=== PATIENT | female | born 1930 | race Caucasian/White ===

== ENCOUNTER 2019-08-03 11:02 | Inpatient (IN) | payer OTHER ==
--- NOTE | 2019-08-03 12:26 | PDOC ---
History of Present Illness <Dao Rincon - Last Filed: 08/03/19 17:16> <Osito Leung - Last Filed: 08/03/19 20:01> - General Chief Complaint: Wound Stated Complaint: WOUND/RT FOOT Time Seen by Provider: 08/03/19 12:11 Past History <Dao Rincon - Last Filed: 08/03/19 17:16> - Past Medical History Anemia: No Asthma: No Cancer: No Cardiac Disorders: No CVA: No COPD: No CHF: No Dementia: No Diabetes: No GI Disorders: No Disorders: No HTN: No Hypercholesterolemia: No Liver Disease: No Thyroid Disease: No - Surgical History Orthopedic Surgery: Yes (right shoulder right hip) - Psycho Social/Smoking Cessation Hx Smoking History: Never smoked Have you smoked in the past 12 months: No If you are a former smoker, when did you quit?: over 50 years <Osito Leung - Last Filed: 08/03/19 20:01> - Past Medical History Allergies/Adverse Reactions: Allergies Allergy/AdvReac Type Severity Reaction Status Date / Time No Known Allergies Allergy Verified 08/03/19 10:15 Home Medications: Ambulatory Orders Acetaminophen 650 mg PO Q8H 08/03/19 Amino Acids/Protein Hydrolys [Pro-Stat Max Liquid] 30 ml PO BID 08/03/19 Docusate Sodium [Colace] 200 mg PO HS 08/03/19 Furosemide [Lasix -] 20 mg PO DAILY 08/03/19 Mirtazapine 7.5 mg PO ASDIR 08/03/19 Multivitamin [Multiple Vitamins] 1 each PO DAILY 08/03/19 Neomycin/Bacitracin/Polymyxinb [Triple Antibiotic Ointment] 1 each TP WEEKLY Oxycodone HCl 5 mg PO Q4H PRN 08/03/19 Polyethylene Glycol 3350 17 gm PO DAILY PRN 08/03/19 Sennosides [Senna] 17.2 mg PO HS 08/03/19 Silver Sulfadiazine [Silvadene] 1 applic TP BID 08/03/19 *Physical Exam - Vital Signs Last Vital Signs Temp Pulse Resp BP Pulse Ox 98.3 F 65 18 125/50 L 99 08/03/19 11:08 08/03/19 11:08 08/03/19 11:08 08/03/19 11:08 08/03/19 11:08 <SergeyDao - Last Filed: 08/03/19 17:16> - Vital Signs Last Vital Signs Temp Pulse Resp BP Pulse Ox 98.3 F 65 18 125/50 L 99 08/03/19 11:08 08/03/19 11:08 08/03/19 11:08 08/03/19 11:08 08/03/19 11:08 08/03/19 13:45 89 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 She currently has no complaints. She lives in [facility] in [facility] and is accompanied by Laura COLE . ROS NEG. VS: BP 124/51, HR 103, RR 21, o2 sat 92%, temp 97F, BMI 14.4 x3 RLE lesions: med maleolar, heel, DIP great toe, errythematous, no DC Plan CBC, CMP, type/screen, PT/INR, EKG 500 cc NS slowly 08/03/19 14:19 Unable to acquire EKG 2/2 to pt presently staying in hallway 08/03/19 14:39 RLE dressing changed x3: med maleolar, heel, DIP great toe, errythematous, no DC 08/03/19 16:53 Decision to admit sent. Pt will be accepted by Ms. Magan Martin/Dr. Ardon <Osito Leung - Last Filed: 08/03/19 20:01> ED Treatment Course - LABORATORY CBC & Chemistry Diagram: 08/03/19 13:19 08/03/19 13:19 - ADDITIONAL ORDERS Additional order review: Laboratory Results 08/03/19 08/03/19 08/03/19 15:16 15:16 13:19 PT with INR 12.10 INR 1.03 Sodium Potassium Chloride Carbon Dioxide Anion Gap BUN Creatinine Est GFR (CKD-EPI)AfAm Est GFR (CKD-EPI)NonAf Random Glucose Calcium Phosphorus 3.4 Magnesium 2.0 Total Bilirubin AST ALT Alkaline Phosphatase Total Protein Albumin Blood Type Cancelled Antibody Screen Cancelled 08/03/19 13:19 PT with INR INR Sodium 140 Potassium 4.8 Chloride 104 Carbon Dioxide 32 Anion Gap 3 L BUN 20.0 H Creatinine 0.5 L Est GFR (CKD-EPI)AfAm 99.45 Est GFR (CKD-EPI)NonAf 85.81 Random Glucose 105 Calcium 8.8 Phosphorus Magnesium Total Bilirubin 0.4 AST 60 H ALT 57 Alkaline Phosphatase 243 H Total Protein 5.9 L Albumin 2.8 L Blood Type Antibody Screen 08/03/19 13:19 RBC 3.75 MCV 92.1 MCHC 34.1 RDW 14.3 MPV 8.4 Neutrophils % 75.2 Lymphocytes % 15.3 Monocytes % 8.0 Eosinophils % 0.9 Basophils % 0.6 - Medications Given in the ED: ED Medications Discontinued Medications Generic Name Dose Route Start Last Admin Trade Name Freq PRN Reason Stop Dose Admin Sodium Chloride 500 mls @ 500 mls/hr 08/03/19 14:14 08/03/19 14:26 Normal Saline - IV 08/03/19 15:13 500 mls/hr ASDIR STA Administration <Dao Rincon - Last Filed: 08/03/19 17:16> - LABORATORY CBC & Chemistry Diagram: 08/03/19 13:19 08/03/19 13:19 <Osito Leung - Last Filed: 08/03/19 20:01> Discharge - Discharge Information Problems reviewed: Yes - Admission Yes <Dao Rinocn - Last Filed: 08/03/19 17:16> - Discharge Information Problems reviewed: Yes - Admission Yes <Osito Leung - Last Filed: 08/03/19 20:01> - Discharge Information Clinical Impression/Diagnosis: Osteomyelitis Qualifiers: Osteomyelitis type: unspecified type Osteomyelitis location: foot Laterality: right Qualified Code(s): M86.9 - Osteomyelitis, unspecified Condition: Stable
[2019-08-03 13:44] LABS: BASO % 0.6 % (0-2.0); EOS % 0.9 % (0-4.5); HEMATOCRIT 34.5 % (32.4-45.2); HEMOGLOBIN 11.8 GM/dL (10.7-15.3); LYMPH % 15.3 % (8-40); MCH 31.5 pg (25.7-33.7); MCHC 34.1 g/dl (32.0-36.0); MEAN CELL VOLUME 92.1 fl (80-96); MEAN PLT VOLUME 8.4 fl (7.5-11.1); NEUT % 75.2 % (42.8-82.8); PLATELET COUNT 294 K/MM3 (134-434); RBC 3.75 M/mm3 (3.60-5.2); RDW 14.3 % (11.6-15.6); WHITE BLOOD COUNT 5.9 K/mm3 (4.0-10.0)
[2019-08-03] MEDS ORDERED: SODIUM CHLORIDE 500 ML IV STA (14:14)
[2019-08-03 14:15] LABS: PHOSPHOROUS 3.4 mg/dL (2.5-4.9)
[2019-08-03 14:19] LABS: ALBUMIN 2.8 g/dl (3.4-5.0); BILIRUBIN,TOTAL 0.4 mg/dL (0.2-1); CALCIUM 8.8 mg/dL (8.5-10.1); CREATININE 0.5 mg/dL (0.55-1.3); POTASSIUM 4.8 mmol/L (3.5-5.1); TOT PROT 5.9 g/dl (6.4-8.2)
[2019-08-03 15:57] LABS: INR 1.03 (0.83-1.09); PROTHROMBIN TIME (PATIENT) 12.1 SEC (9.7-13.0)
--- NOTE | 2019-08-03 16:29 | PDOC ---
Documentation entered by Marlene Mooney SCRIBE, acting as scribe for Homa Hanley MD. Homa Hanley MD: This documentation has been prepared by the Jesica posada Brenda, SCRIBE, under my direction and personally reviewed by me in its entirety. I confirm that the documentation accurately reflects all work, treatment, procedures, and medical decision making performed by me. Attending Attestation - Resident Resident Name: Osito Leung - ED Attending Attestation I have performed the following: I have examined & evaluated the patient, The case was reviewed & discussed with the resident, I agree w/resident's findings & plan, Exceptions are as noted - HPI HPI: 08/03/19 14:16 The patient is an 89 year old female with a significant PMH of who presents to the ED sent by Dr. Nayak, for evaluation of right foot wound. The patient denies chest pain, shortness of breath, headache and dizziness. Denies fever, chills, nausea, vomiting, diarrhea and constipation. Denies dysuria, frequency, urgency and hematuria. Allergies: NKA Social history: No reported hx of tobacco use, alcohol use or illicit drug use. - Physicial Exam PE: 08/03/19 16:12 Agree with resident exam. Patient is alert and oriented and in no acute distress. Lungs are clear. Heart regular rate and rhythm. Abdomen soft, non tender, non distended without guarding or rebound. + two areas of redness and tenderness on each foot with ulcers. 08/03/19 16:16 08/03/19 16:29 - Medical Decision Making 08/03/19 16:16 Pt presents to the ED after sent in by Dr. Nayak for osteo of the L foot. Patient has deep, chronic wounds of both feet, xray by Nael showed osteo. Will check labs and start IV antibiotics, admit to medicine. 08/03/19 16:16
--- NOTE | 2019-08-03 18:01 | HP ---
CHIEF COMPLAINT: Foot ulcers PCP: Unknown HISTORY OF PRESENT ILLNESS: 89 year-old female, with a PMH significant for situs inversus, severe protein calorie malnutrition, and right hip fracture s/p repair (2019, SUNITA Hanna). 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 Patient is a poor historian, there is no one present at time of this admission to give parallel history. Information is taken from the medical record. ER course was notable for: (1) (2) (3) PAST MEDICAL HISTORY: Situs inversus Severe protein calorie malnutrition PAST SURGICAL HISTORY: Right hip fracture repair (2019, SUNITA Hanna) Social History: lives in [facility] in [facility]; daija Sanchez RN Smoking: quit 50 years go Alcohol: no Drugs: no Allergies No Known Allergies Allergy (Verified 08/03/19 10:15) HOME MEDICATIONS: Home Medications Medication Instructions Recorded Acetaminophen 650 mg PO Q8H 08/03/19 Amino Acids/Protein Hydrolys 30 ml PO BID 08/03/19 [Pro-Stat Max Liquid] Docusate Sodium [Colace] 200 mg PO HS 08/03/19 Furosemide [Lasix -] 20 mg PO DAILY 08/03/19 Mirtazapine 7.5 mg PO ASDIR 08/03/19 Multivitamin [Multiple Vitamins] 1 each PO DAILY 08/03/19 Neomycin/Bacitracin/Polymyxinb 1 each TP WEEKLY 08/03/19 [Triple Antibiotic Ointment] Oxycodone HCl 5 mg PO Q4H PRN 08/03/19 Polyethylene Glycol 3350 17 gm PO DAILY PRN 08/03/19 Sennosides [Senna] 17.2 mg PO HS 08/03/19 Silver Sulfadiazine [Silvadene] 1 applic TP BID 08/03/19 REVIEW OF SYSTEMS: unable to obtain from patient who is poor historian PHYSICAL EXAMINATION Vital Signs - 24 hr 08/03/19 11:08 Temperature 98.3 F Pulse Rate 65 Respiratory 18 Rate Blood Pressure 125/50 L O2 Sat by Pulse 99 Oximetry (%) GENERAL: A&Ox2. HEAD: Normal with no signs of trauma. EYES: Pupils equal, round and reactive to light, extraocular movements intact, sclera anicteric, conjunctiva clear. No lid lag. LUNGS: Anterior breath sounds clear. HEART: Regular rate and rhythm, S1 and S2 ABDOMEN: Soft, nontender, not distended UPPER LEFT EXTREMITY: arm rests loosely in a sling; large, obvious deformity of humeral head with ecchymosis, not tender LEFT LOWER EXTREMITY: Gauze wrap c/d/i; patient refused to allow dressing to be removed, became agitated, deferred exam Laboratory Results - last 24 hr 08/03/19 08/03/19 08/03/19 13:19 13:19 13:19 WBC 5.9 RBC 3.75 Hgb 11.8 Hct 34.5 MCV 92.1 MCH 31.5 MCHC 34.1 RDW 14.3 Plt Count 294 MPV 8.4 Absolute Neuts (auto) 4.4 Neutrophils % 75.2 Lymphocytes % 15.3 Monocytes % 8.0 Eosinophils % 0.9 Basophils % 0.6 Nucleated RBC % 0 PT with INR INR Sodium 140 Potassium 4.8 Chloride 104 Carbon Dioxide 32 Anion Gap 3 L BUN 20.0 H Creatinine 0.5 L Est GFR (CKD-EPI)AfAm 99.45 Est GFR (CKD-EPI)NonAf 85.81 Random Glucose 105 Calcium 8.8 Phosphorus 3.4 Magnesium 2.0 Total Bilirubin 0.4 AST 60 H ALT 57 Alkaline Phosphatase 243 H Total Protein 5.9 L Albumin 2.8 L Blood Type Antibody Screen 08/03/19 08/03/19 15:16 15:16 WBC RBC Hgb Hct MCV MCH MCHC RDW Plt Count MPV Absolute Neuts (auto) Neutrophils % Lymphocytes % Monocytes % Eosinophils % Basophils % Nucleated RBC % PT with INR 12.10 INR 1.03 Sodium Potassium Chloride Carbon Dioxide Anion Gap BUN Creatinine Est GFR (CKD-EPI)AfAm Est GFR (CKD-EPI)NonAf Random Glucose Calcium Phosphorus Magnesium Total Bilirubin AST ALT Alkaline Phosphatase Total Protein Albumin Blood Type Cancelled Antibody Screen Cancelled ASSESSMENT/PLAN 89 year-old female, with a PMH significant for situs inversus, severe protein calorie malnutrition, and right hip fracture s/p repair (2019, SUNITA Hanna). 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 Deformity of left humeral head. r/o Osteoarthritis of left foot --prior imaging not available --patient is afebrile, no leukocytosis; will defer IV antibiotics tonight pending decision to get bone biopsy first --consults placed for podiatry and ID Left humeral head deformity with ecchymosis --patient says she fell a few weeks ago?? unclear if she went to a hospital; arm in a sling; need to get history, medical records --good radial pulse, arm is warm, well-perfused --xrays in am --consider ortho consult Severe protein calorie malnutrition --Emaciated, skeletal, temporal wasting, protruding clavicles and ribs, absence of body fat; BMI 14.4 --continue Prostat --nutrition consult FEN Fluids: PO intake adequate Electrolytes: replete as indicated Nutrition: regular diet; Pro stat DVT prophylaxis: subq heparin Physical therapy Dispo: continues to require inpatient care. Full code. Visit type - Emergency Visit Emergency Visit: Yes ED Registration Date: 08/03/19 Care time: The patient presented to the Emergency Department on the above date and was hospitalized for further evaluation of their emergent condition. - New Patient This patient is new to me today: Yes Date on this admission: 08/03/19 - Critical Care Critical Care patient: No
[2019-08-03] MEDS ORDERED: POLYETHYLENE GLYCOL 3350 119 GM BTL PO PRN (20:30)
[2019-08-03] MEDS: AMINO ACIDS/PROTEIN HYDROLYS 30 ML LIQUID.PKT PO SCH (21:05)
[2019-08-03] MEDS: HEPARIN NA (PORCINE) 5,000 UNITS/ML 1ML VIAL SQ SCH (21:05)
[2019-08-03] MEDS: MIRTAZAPINE 15 MG TABLET (FP) PO SCH (21:05)
[2019-08-03] MEDS: SENNOSIDES 8.6MG TABLET (FP) PO SCH (21:06)
[2019-08-03] MEDS: DOCUSATE SODIUM 100 MG CAPSULE (FP) PO SCH (21:06)
[2019-08-04] MEDS ORDERED: ACETAMINOPHEN 1000 MG/100 ML VIAL (NON FORMULARY) IVPB ONE ×3 (08:09→08:30)
--- NOTE | 2019-08-04 08:47 | PN ---
Progress Note, Physician Chief Complaint: Examined siting in bed. States her foot has minimal pain. Shoulder in sling and states pain in persistent 4/10 History of Present Illness: 89 year-old female, with a PMH significant for situs inversus, severe protein calorie malnutrition, and right hip fracture s/p repair (2019, SUNITA Hanna). 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 Patient is a poor historian, there is no one present at time of this admission to give parallel history. Information is taken from the medical record. - Current Medication List Current Medications: Active Medications Amino Acids (Prosource No Carb Liquid Pkt) 30 ml PO BID [facility] Last Admin: 08/03/19 21:05 Dose: 30 ml Docusate Sodium (Colace -) 200 mg PO [facility] Last Admin: 08/03/19 21:06 Dose: 200 mg Furosemide (Lasix -) 20 mg PO DAILY [facility] Heparin Sodium (Porcine) (Heparin -) 5,000 unit SQ BID [facility] Last Admin: 08/03/19 21:05 Dose: 5,000 unit Mirtazapine (Remeron -) 7.5 mg PO [facility] Last Admin: 08/03/19 21:05 Dose: 7.5 mg Polyethylene Glycol (Miralax (For Daily Use) -) 17 gm PO DAILY PRN PRN Reason: CONSTIPATION Senna (Senna -) 1 tab PO [facility] Last Admin: 08/03/19 21:06 Dose: 1 tab - Objective Vital Signs: Vital Signs Temperature 97.7 F 08/04/19 05:59 Pulse Rate 75 08/04/19 05:59 Respiratory Rate 18 08/04/19 05:59 Blood Pressure 150/93 08/04/19 05:59 O2 Sat by Pulse Oximetry (%) 97 08/03/19 21:00 Constitutional: Yes: No Distress, Calm, Cachectic Eyes: Yes: WNL, Conjunctiva Clear HENT: Yes: WNL, Atraumatic, Normocephalic Neck: Yes: WNL, Supple, Trachea Midline Cardiovascular: Yes: WNL, Regular Rate and Rhythm Respiratory: Yes: WNL, Regular, CTA Bilaterally Gastrointestinal: Yes: WNL, Normal Bowel Sounds ...Rectal Exam: Yes: Deferred Genitourinary: Yes: Incontinence Musculoskeletal: Yes: WNL Extremities: Yes: Deformity (arm rests loosely in a sling; large, obvious deformity of humeral head with ecchymosis, not tender), Other (Gauze wrap c/d/i ; patient refused to allow dressing to be removed.) Edema: No Peripheral Pulses WNL: Yes Peripheral Pulses: Left Radial: 2+, Right Radial: 2+, Left Doralis Pedis: 2+, Right Dorsalis Pedis: 2+, Left Femoral: 2+, Right Femoral: 2+ Integumentary: Yes: Venous Stasis Changes, Other (dresing cdi) Wound/Incision: Yes: Dressing Dry and Intact Neurological: Yes: WNL, Alert, Oriented ...Motor Strength: LUE, LLE, RUE, RLE (generalized weakness. Right arm in sling) Labs: CBC, BMP 08/03/19 13:19 08/03/19 13:19 INR, PTT INR 1.03 (0.83-1.09) 08/03/19 15:16 - ....Imaging X-ray: Report Reviewed (right displaced proximal humerus fx) Problem List - Problems (1) Prophylactic measure Assessment/Plan: FEN Fluids: poor PO intake Electrolytes: monitor & replete as needed Nutrition: regular diet with supplements DVT moderate risk sq heparin Dispo Maintain as inpatient full code discharge planning Code(s): Z29.9 - ENCOUNTER FOR PROPHYLACTIC MEASURES, UNSPECIFIED (2) Situs inversus Assessment/Plan: noted on xray Code(s): Q89.3 - SITUS INVERSUS (3) Protein-calorie malnutrition, severe Assessment/Plan: severe malnutrition as evidence by BMI 13 temoral and muscle wasting c/w nutritional supplements procource BID turn and repositon q2h Code(s): E43 - UNSPECIFIED SEVERE PROTEIN-CALORIE MALNUTRITION (4) Foot ulcer Assessment/Plan: Seen by vascular To prevent DTI/Sacral ulcer from developing, recommend: -Reposition every two hours while in bed -Air mattress recommended -Use drawsheets and Trendelenburg when repositioning to reduce friction and shear -Manageincontinence via timely cleansing, use of appropriate incontinence disposables and use of barrier ointment to intact skin -Ensure adequate hydration/nutrition, supplementation per primary team -Ensure off-loading to all bony areas (heels, ankles, hips and tailbone) with Allevyn/Optifoam Code(s): L97.509 - NON-PRESSURE CHRONIC ULCER OTH PRT UNSP FOOT W UNSP SEVERITY (5) S/P right hip fracture Assessment/Plan: Right hip fracture repair (2019, SUNITA Hanna) Code(s): Z87.81 - PERSONAL HISTORY OF (HEALED) TRAUMATIC FRACTURE (6) Osteomyelitis Assessment/Plan: sent from wound clinic for osteo treatment started on ceftriaxone ID following, Dr Hammonds afebrimitchell, monitor wounds, WBC Code(s): M86.9 - OSTEOMYELITIS, UNSPECIFIED Qualifiers: Osteomyelitis type: unspecified type Osteomyelitis location: foot Laterality: right Qualified Code(s): M86.9 - Osteomyelitis, unspecified (7) Fracture, humerus, proximal Assessment/Plan: right displaced proximal humerus fx seen by ortho-Given pts status and active infection surgery is not indicated maintain sling, NWB RUE ok to perform ROM of elbow,wrist and hand pain control Code(s): S42.209A - UNSP FRACTURE OF UPPER END OF UNSP HUMERUS, INIT FOR CLOS FX Visit type - Emergency Visit Emergency Visit: Yes ED Registration Date: 08/03/19 Care time: The patient presented to the Emergency Department on the above date and was hospitalized for further evaluation of their emergent condition. - New Patient This patient is new to me today: Yes Date on this admission: 08/04/19 - Critical Care Critical Care patient: No - Discharge Referral Referred to [facility] No
[2019-08-04] MEDS ORDERED: DEXTROSE 5%-WATER 100 ML IVPB ONE (09:53)
[2019-08-04] MEDS: FUROSEMIDE 20 MG TABLET (FP) PO SCH (09:58)
[2019-08-04] MEDS: HEPARIN NA (PORCINE) 5,000 UNITS/ML 1ML VIAL SQ SCH ×2 (09:58→22:54)
[2019-08-04] MEDS: CEFTRIAXONE 2 GM in DEXTROSE 5%-WATER 100 ML IVPB SCH (09:59)
[2019-08-04] MEDS: AMINO ACIDS/PROTEIN HYDROLYS 30 ML LIQUID.PKT PO SCH ×2 (09:59→22:54)
--- NOTE | 2019-08-04 12:55 | CON.ID ---
Consult Consult Specialty:: infectious diseases Referred by:: hospitalist Reason for Consultation:: rt leg wound,fall - History of Present Illness Chief Complaint: pain rt leg and shoulder History of Present Illness: 89 year-old female, with a PMH significant for situs inversus, severe protein calorie malnutrition, and right hip fracture s/p repair (2019, SUNITA Hanna). 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 Patient is a poor historian, history obtained from the charts as patient unable to give proper history complaining of pain in the leg - History Source History Provided By: Patient, Medical Record Limitations to Obtaining History: Poor Historian - Alcohol/Substance Use Hx Alcohol Use: No - Smoking History Smoking history: Never smoked Have you smoked in the past 12 months: No If you are a former smoker, when did you quit?: over 50 years Home Medications - Allergies Allergies/Adverse Reactions: Allergies Allergy/AdvReac Type Severity Reaction Status Date / Time No Known Allergies Allergy Verified 08/03/19 10:15 - Home Medications Home Medications: Ambulatory Orders Amino Acids/Protein Hydrolys [Pro-Stat Max Liquid] 30 ml PO BID 08/03/19 Docusate Sodium [Colace] 200 mg PO HS 08/03/19 Furosemide [Lasix -] 20 mg PO DAILY 08/03/19 Multivitamin [Multiple Vitamins] 1 each PO DAILY 08/03/19 Neomycin/Bacitracin/Polymyxinb [Triple Antibiotic Ointment] 1 each TP WEEKLY RX: Acetaminophen 650 mg PO Q8H 08/03/19 RX: Mirtazapine 7.5 mg PO ASDIR 08/03/19 RX: Oxycodone HCl 5 mg PO Q4H PRN 08/03/19 RX: Polyethylene Glycol 3350 17 gm PO DAILY PRN 08/03/19 Sennosides [Senna] 17.2 mg PO HS 08/03/19 Silver Sulfadiazine [Silvadene] 1 applic TP BID 08/03/19 Review of Systems - Review of Systems Constitutional: reports: Loss of Appetite, Weakness, Other Eyes: reports: No Symptoms HENT: reports: No Symptoms Neck: reports: No Symptoms Cardiovascular: reports: No Symptoms Respiratory: reports: No Symptoms Gastrointestinal: reports: No Symptoms Musculoskeletal: reports: Other (leg and shoulder pain) Integumentary: reports: Wound Neurological: reports: No Symptoms Endocrine: reports: No Symptoms Hematology/Lymphatic: reports: No Symptoms Psychiatric: reports: No Symptoms Physical Exam Vital Signs: Vital Signs Temperature 98 F 08/04/19 09:00 Pulse Rate 74 08/04/19 09:00 Respiratory Rate 18 08/04/19 09:00 Blood Pressure 113/50 L 08/04/19 09:00 O2 Sat by Pulse Oximetry (%) 97 08/04/19 09:00 Constitutional: Yes: Thin, Other (failure to thrive) Eyes: Yes: Conjunctiva Clear Cardiovascular: Yes: Regular Rate and Rhythm Respiratory: Yes: Regular, CTA Bilaterally Gastrointestinal: Yes: Normal Bowel Sounds, Soft Musculoskeletal: Yes: Other Extremities: Yes: Other Wound/Incision: Yes: Other (Other (Rt medial ankle ulcer, Rt heel eschar, + surrounding erythema)) Neurological: Yes: Alert Psychiatric: Yes: Alert Labs: CBC, BMP 08/03/19 13:19 08/03/19 13:19 Assessment/Plan Problem List - Problems (1) Foot ulcer Code(s): L97.509 - NON-PRESSURE CHRONIC ULCER OTH PRT UNSP FOOT W UNSP SEVERITY (2) Fracture, humerus, proximal Code(s): S42.209A - UNSP FRACTURE OF UPPER END OF UNSP HUMERUS, INIT FOR CLOS FX (3) Protein-calorie malnutrition, severe Code(s): E43 - UNSPECIFIED SEVERE PROTEIN-CALORIE MALNUTRITION (4) 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 Assessment/Plan Rt foot multiple foot ulcers/ cellulitis Rt heel eschar/Vascular insufficiency Humeral Fracture Severe Malnutrition plan will start on abx empirically podiatry and vascular to see the patient rest as per the team wound care
--- NOTE | 2019-08-04 14:07 | CON.ORTH ---
Consult Reason for Consultation:: right shoulder fx - Alcohol/Substance Use Hx Alcohol Use: No - Smoking History Smoking history: Never smoked Have you smoked in the past 12 months: No If you are a former smoker, when did you quit?: over 50 years Home Medications - Allergies Allergies/Adverse Reactions: Allergies Allergy/AdvReac Type Severity Reaction Status Date / Time No Known Allergies Allergy Verified 08/03/19 10:15 - Home Medications Home Medications: Ambulatory Orders Acetaminophen 650 mg PO Q8H 08/03/19 Amino Acids/Protein Hydrolys [Pro-Stat Max Liquid] 30 ml PO BID 08/03/19 Docusate Sodium [Colace] 200 mg PO HS 08/03/19 Furosemide [Lasix -] 20 mg PO DAILY 08/03/19 Mirtazapine 7.5 mg PO ASDIR 08/03/19 Multivitamin [Multiple Vitamins] 1 each PO DAILY 08/03/19 Neomycin/Bacitracin/Polymyxinb [Triple Antibiotic Ointment] 1 each TP WEEKLY Oxycodone HCl 5 mg PO Q4H PRN 08/03/19 Polyethylene Glycol 3350 17 gm PO DAILY PRN 08/03/19 Sennosides [Senna] 17.2 mg PO HS 08/03/19 Silver Sulfadiazine [Silvadene] 1 applic TP BID 08/03/19 Physical Exam for Ortho Vital Signs: Vital Signs Temperature 98 F 08/04/19 09:00 Pulse Rate 74 08/04/19 09:00 Respiratory Rate 18 08/04/19 09:00 Blood Pressure 113/50 L 08/04/19 09:00 O2 Sat by Pulse Oximetry (%) 97 08/04/19 09:00 Labs: CBC, BMP 08/03/19 13:19 08/03/19 13:19 INR, PTT INR 1.03 (0.83-1.09) 08/03/19 15:16 - Upper Extremity Shoulder: Yes: Right, Deformity, Ecchymosis, Limited ROM, Pain, Swelling, Tenderness, Other (nvi) Imaging - Results X-ray: Image Reviewed Assessment/Plan 89 year-old female, with a PMH significant for situs inversus, severe protein calorie malnutrition, and right hip fracture s/p repair (2019, SUNITA Hanna). 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 Patient is a poor historian, there is no one present at time of this admission to give parallel history. Information is taken from the medical record. Pt is in sling and is s/p fall approx 1 week ago. She saw another Orthopedic at that time who placed her in a sling. Denies any numbness or tingling. a/p- right displaced proximal humerus fx Given pts status and active infection surgery is not indicated maintain sling, NWB RUE ok to perform ROM of elbow,wrist and hand pain control ok to d/c from ortho pov d/w Dr. Dunbar
[2019-08-04 16:25] LABS: BASO % 1.4 % (0-2.0); HEMATOCRIT 33.2 % (32.4-45.2); HEMOGLOBIN 11.4 GM/dL (10.7-15.3); LYMPH % 10.2 % (8-40); MCH 31.7 pg (25.7-33.7); MCHC 34.5 g/dl (32.0-36.0); MEAN CELL VOLUME 91.9 fl (80-96); MEAN PLT VOLUME 8.5 fl (7.5-11.1); MONO % 8.1 % (3.8-10.2); NEUT % 79.3 % (42.8-82.8); PLATELET COUNT 315 K/MM3 (134-434); RBC 3.61 M/mm3 (3.60-5.2); RDW 14.6 % (11.6-15.6); WHITE BLOOD COUNT 7.4 K/mm3 (4.0-10.0)
[2019-08-04 16:38] LABS: PROTHROMBIN TIME (PATIENT) 11.8 SEC (9.7-13.0)
--- NOTE | 2019-08-04 16:38 | CONSULT ---
- Consultation REQUESTING PROVIDER: Wound Care Consult CONSULT REQUEST: We have been asked to surgically evaluate this patient for right heel and ankle wounds. PCP: MARIA R Steve HISTORY OF PRESENT ILLNESS: Called to eval 89 yo female with PMHx as noted below for osteoarthritis of the right foot. Patient is a poor historian. Majority of this gathered from patient's medical records. PMHx: situs inversus, severe protein calorie malnutrition, and right hip fracture s/p repair (2019, SUNITA Hanna) PSHx: Home Medications Medication Instructions Recorded Acetaminophen 650 mg PO Q8H 08/03/19 Amino Acids/Protein Hydrolys 30 ml PO BID 08/03/19 [Pro-Stat Max Liquid] Docusate Sodium [Colace] 200 mg PO HS 08/03/19 Furosemide [Lasix -] 20 mg PO DAILY 08/03/19 Mirtazapine 7.5 mg PO ASDIR 08/03/19 Multivitamin [Multiple Vitamins] 1 each PO DAILY 08/03/19 Neomycin/Bacitracin/Polymyxinb 1 each TP WEEKLY 08/03/19 [Triple Antibiotic Ointment] Oxycodone HCl 5 mg PO Q4H PRN 08/03/19 Polyethylene Glycol 3350 17 gm PO DAILY PRN 08/03/19 Sennosides [Senna] 17.2 mg PO HS 08/03/19 Silver Sulfadiazine [Silvadene] 1 applic TP BID 08/03/19 Allergies NKDA ROS: Systems reviewed and considered negative except for what's contained in the HPI. PE: GENERAL: A&O. NAD. Cachectic MUSCULOSKELETAL: Normal ROM at all joints. No bony deformities or tenderness. LE: LLE unremarkable. RLE with eschar covering her heel (non-boggy, no induration, no purulence, not malodorous). mild periwound erythema. Unstageable ulcer covering her medial maleoli. DP 1+, warm, well-perfused. No calf tenderness. No peripheral edema. PSYCH: Cooperative. Good eye contact. Appropriate mood and affect. Last Vital Signs Temp Pulse Resp BP Pulse Ox 98.1 F 75 20 122/71 97 08/04/19 14:58 08/04/19 14:58 08/04/19 14:58 08/04/19 14:58 08/04/19 09:00 CBC 08/04/19 15:00 INR, PTT INR 1.03 (0.83-1.09) 08/03/19 15:16 Blood Type Blood Type Cancelled 08/03/19 15:16 Problem List - Problems (1) Foot ulcer Assessment/Plan: 89 yo female with multiple medical problems, has right shoulder fractured and evaluated by Ortho (recommendations noted). Wouldn't recommend removing heel eschar as it doesn't appear infected. Doing so, coupled with her poor nutritional status wont lend to healing and most likely would/could lead to a BKA. To prevent DTI/Sacral ulcer from developing, recommend: -Reposition every two hours while in bed -Air mattress recommended -Use drawsheets and Trendelenburg when repositioning to reduce friction and shear -Manageincontinence via timely cleansing, use of appropriate incontinence disposables and use of barrier ointment to intact skin -Ensure adequate hydration/nutrition, supplementation per primary team -Ensure off-loading to all bony areas (heels, ankles, hips and tailbone) with Allevyn/Optifoam Above plan discussed with Dr. Nayak and agrees. Code(s): L97.509 - NON-PRESSURE CHRONIC ULCER OTH PRT UNSP FOOT W UNSP SEVERITY (2) Protein-calorie malnutrition, severe Code(s): E43 - UNSPECIFIED SEVERE PROTEIN-CALORIE MALNUTRITION Visit type - Case Type Case Type: ED Admission - Emergency Emergency Visit: Yes ED Registration Date: 08/03/19 Care time: The patient presented to the Emergency Department on the above date and was hospitalized for further evaluation of their emergent condition. - New patient This patient is new to me today: Yes Date on this admission: 08/04/19
[2019-08-04 16:54] LABS: ALBUMIN 2.5 g/dl (3.4-5.0); BILIRUBIN,TOTAL 0.3 mg/dL (0.2-1); BLOOD UREA NITROGEN 21.5 mg/dL (7-18); CALCIUM 8.1 mg/dL (8.5-10.1); CREATININE 0.5 mg/dL (0.55-1.3); POTASSIUM 3.4 mmol/L (3.5-5.1); TOT PROT 5.2 g/dl (6.4-8.2)
--- NOTE | 2019-08-04 17:10 | CONSULT ---
Consult Consult Specialty:: Podiatry Reason for Consultation:: Multiple wound right foot and ankle. - Alcohol/Substance Use Hx Alcohol Use: No - Smoking History Smoking history: Never smoked Have you smoked in the past 12 months: No If you are a former smoker, when did you quit?: over 50 years Home Medications - Allergies Allergies/Adverse Reactions: Allergies Allergy/AdvReac Type Severity Reaction Status Date / Time No Known Allergies Allergy Verified 08/03/19 10:15 - Home Medications Home Medications: Ambulatory Orders Acetaminophen 650 mg PO Q8H 08/03/19 Amino Acids/Protein Hydrolys [Pro-Stat Max Liquid] 30 ml PO BID 08/03/19 Docusate Sodium [Colace] 200 mg PO HS 08/03/19 Furosemide [Lasix -] 20 mg PO DAILY 08/03/19 Mirtazapine 7.5 mg PO ASDIR 08/03/19 Multivitamin [Multiple Vitamins] 1 each PO DAILY 08/03/19 Neomycin/Bacitracin/Polymyxinb [Triple Antibiotic Ointment] 1 each TP WEEKLY Oxycodone HCl 5 mg PO Q4H PRN 08/03/19 Polyethylene Glycol 3350 17 gm PO DAILY PRN 08/03/19 Sennosides [Senna] 17.2 mg PO HS 08/03/19 Silver Sulfadiazine [Silvadene] 1 applic TP BID 08/03/19 Physical Exam Vital Signs: Vital Signs Temperature 98.1 F 08/04/19 14:58 Pulse Rate 75 08/04/19 14:58 Respiratory Rate 20 08/04/19 14:58 Blood Pressure 122/71 08/04/19 14:58 O2 Sat by Pulse Oximetry (%) 97 08/04/19 09:00 Extremities: Yes: Other (+grade 3 wound medial ankle right, heel right, 1st mpj right, -drainage, +dry necrosis, -cellulitis, -drainage) Labs: CBC, BMP 08/04/19 15:00 08/04/19 15:00 Assessment/Plan cellulitis grade 3 wounds x 3 right pvd Read and appreciated vascular note. May need debridement or if severe enough pvd a vascular procedure possibly bka due to severity of wounds. Will follow.
[2019-08-04] MEDS ORDERED: POTASSIUM CHLORIDE TABS 20 MEQ TABLET.ER (FP) PO ONE (19:15)
[2019-08-04] MEDS: DOCUSATE SODIUM 100 MG CAPSULE (FP) PO SCH (22:52)
[2019-08-04] MEDS: COLLAGENASE CLOSTRIDIUM HIST. 30 GRAMS TUBE TP SCH (22:52)
[2019-08-04] MEDS: MIRTAZAPINE 15 MG TABLET (FP) PO SCH (22:53)
[2019-08-04] MEDS: SENNOSIDES 8.6MG TABLET (FP) PO SCH (22:54)
[2019-08-05] MEDS ORDERED: DEXTROSE 5%-WATER 100 ML IVPB ONE (09:33)
[2019-08-05] MEDS: CEFTRIAXONE 2 GM in DEXTROSE 5%-WATER 100 ML IVPB SCH (09:47)
[2019-08-05] MEDS: AMINO ACIDS/PROTEIN HYDROLYS 30 ML LIQUID.PKT PO SCH ×2 (09:48→21:42)
[2019-08-05] MEDS: FUROSEMIDE 20 MG TABLET (FP) PO SCH (09:48)
[2019-08-05] MEDS: HEPARIN NA (PORCINE) 5,000 UNITS/ML 1ML VIAL SQ SCH ×2 (09:48→21:46)
--- NOTE | 2019-08-05 15:22 | PN ---
Progress Note, Physician History of Present Illness: Pt is alert, responsive, without acute distress. Rt foot discomfort at times. Remains afebrile. - Current Medication List Current Medications: Active Medications Amino Acids (Prosource No Carb Liquid Pkt) 30 ml PO BID [facility] Last Admin: 08/05/19 09:48 Dose: 30 ml Collagenase (Santyl -) 1 applic TP DAILY [facility]; Protocol Last Admin: 08/04/19 22:52 Dose: 1 applic Docusate Sodium (Colace -) 200 mg PO HS [facility] Last Admin: 08/04/19 22:52 Dose: 200 mg Furosemide (Lasix -) 20 mg PO DAILY [facility] Last Admin: 08/05/19 09:48 Dose: 20 mg Heparin Sodium (Porcine) (Heparin -) 5,000 unit SQ BID [facility] Last Admin: 08/05/19 09:48 Dose: 5,000 unit Ceftriaxone Sodium 2 gm/ (Dextrose) 100 mls @ 100 mls/hr IVPB DAILY [facility]; Protocol Last Admin: 08/05/19 09:47 Dose: 100 mls/hr Mirtazapine (Remeron -) 7.5 mg PO [facility] Last Admin: 08/04/19 22:53 Dose: 7.5 mg Polyethylene Glycol (Miralax (For Daily Use) -) 17 gm PO DAILY PRN PRN Reason: CONSTIPATION Senna (Senna -) 1 tab PO [facility] Last Admin: 08/04/19 22:54 Dose: 1 tab - Objective Vital Signs: Vital Signs Temperature 98.1 F 08/05/19 14:11 Pulse Rate 84 08/05/19 14:11 Respiratory Rate 20 08/05/19 14:11 Blood Pressure 126/75 08/05/19 14:11 O2 Sat by Pulse Oximetry (%) 97 08/04/19 21:00 Constitutional: Yes: No Distress, Calm Cardiovascular: Yes: Regular Rate and Rhythm Respiratory: Yes: Regular Gastrointestinal: Yes: Normal Bowel Sounds, Soft Genitourinary: Yes: WNL Wound/Incision: Yes: Other (Rt medial ankle ulcer, Rt heel eschar, +surrounding erythema) Neurological: Yes: Alert Labs: CBC, BMP 08/04/19 15:00 08/04/19 15:00 INR, PTT INR 1.00 (0.83-1.09) 08/04/19 15:00 Microbiology 08/03/19 13:19 Blood - Peripheral Venous Blood Culture - Preliminary NO GROWTH OBTAINED AFTER 48 HOURS, INCUBATION TO CONTINUE FOR 3 DAYS. 08/03/19 13:19 Blood - Peripheral Venous Blood Culture - Preliminary NO GROWTH OBTAINED AFTER 48 HOURS, INCUBATION TO CONTINUE FOR 3 DAYS. - ....Imaging X-ray: Report Reviewed Problem List - Problems (1) Foot ulcer Code(s): L97.509 - NON-PRESSURE CHRONIC ULCER OTH PRT UNSP FOOT W UNSP SEVERITY (2) Fracture, humerus, proximal Code(s): S42.209A - UNSP FRACTURE OF UPPER END OF UNSP HUMERUS, INIT FOR CLOS FX (3) Protein-calorie malnutrition, severe Code(s): E43 - UNSPECIFIED SEVERE PROTEIN-CALORIE MALNUTRITION (4) 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 Assessment/Plan Rt foot multiple foot ulcers/ cellulitis Rt heel eschar/Vascular insufficiency Humeral Fracture Severe Malnutrition -- continue antibiotics empirically -- Podiatry and Vascular notes noted -- Continue wound care/off-loading pt is afebrile, without distress
--- NOTE | 2019-08-05 16:44 | PN ---
Physical Exam: SUBJECTIVE: Patient seen and examined. She has no complaints. OBJECTIVE: Vital Signs Period Temp Pulse Resp BP Sys/Mena Pulse Ox Last 24 Hr 97.4 F-98.5 F 77-85 18-20 126-140/71-80 97 GENERAL: The patient is awake, alert, cachectic, in no acute distress. LUNGS: Breath sounds equal, clear to auscultation bilaterally, no wheezes, no crackles, no accessory muscle use. HEART: Regular rate and rhythm, S1, S2 without murmur, rub or gallop. ABDOMEN: Soft, nontender, nondistended, normoactive bowel sounds, no guarding, no rebound, no hepatosplenomegaly, no masses. EXTREMITIES: 2+ pulses, warm, well-perfused, no edema. Laboratory Results - last 24 hr 08/04/19 15:00 Sodium 136 Potassium 3.4 L Chloride 99 Carbon Dioxide 32 Anion Gap 5 L BUN 21.5 H Creatinine 0.5 L Est GFR (CKD-EPI)AfAm 99.45 Est GFR (CKD-EPI)NonAf 85.81 Random Glucose 172 H Calcium 8.1 L Magnesium 2.0 Total Bilirubin 0.3 AST 47 H ALT 48 Alkaline Phosphatase 225 H Total Protein 5.2 L Albumin 2.5 L Active Medications Generic Name Dose Route Start Last Admin Trade Name Freq PRN Reason Stop Dose Admin Amino Acids 30 ml 08/03/19 22:00 08/05/19 09:48 Prosource No Carb Liquid Pkt PO 30 ml BID [facility] Administration Collagenase 1 applic 08/04/19 17:30 08/04/19 22:52 Santyl - TP 1 applic DAILY [facility] Administration Protocol Docusate Sodium 200 mg 08/03/19 22:00 08/04/19 22:52 Colace - PO 200 mg HS [facility] Administration Furosemide 20 mg 08/04/19 10:00 08/05/19 09:48 Lasix - PO 20 mg DAILY [facility] Administration Heparin Sodium (Porcine) 5,000 unit 08/03/19 22:00 08/05/19 09:48 Heparin - SQ 5,000 unit BID [facility] Administration Ceftriaxone Sodium 2 gm/ 100 mls @ 100 mls/hr 08/04/19 10:00 08/05/19 09:47 Dextrose IVPB 100 mls/hr DAILY [facility] Administration Protocol Mirtazapine 7.5 mg 08/03/19 22:00 08/04/19 22:53 Remeron - PO 7.5 mg HS [facility] Administration Polyethylene Glycol 17 gm 08/03/19 20:30 Miralax (For Daily Use) - PO DAILY PRN CONSTIPATION Senna 1 tab 08/03/19 22:00 08/04/19 22:54 Senna - PO 1 tab HS [facility] Administration ASSESSMENT/PLAN: This is an 89 year old woman with a history of situs inversus who presented to the ED from wound clinic for right foot wounds. 1. Displaced proximal right humerus fracture - Maintain sling 2. Multiple right foot ulcers - Continue wound care - Pain control - Continue empiric ceftriaxone 3. Situs inversus 4. Severe protein calorie malnutrition with cachexia - Continue ProSource, Ensure, Magic Cup 5. Disposition - Patient wheelchair bound at [facility] in [place] - Continue PT for ROM exercises - Plan for discharge back to [facility] if no further intervention planned by ortho, vascular, podiatry Visit type - Emergency Visit Emergency Visit: Yes ED Registration Date: 08/03/19 Care time: The patient presented to the Emergency Department on the above date and was hospitalized for further evaluation of their emergent condition. - New Patient This patient is new to me today: Yes Date on this admission: 08/05/19 - Critical Care Critical Care patient: No - Discharge Referral Referred to [facility] No
[2019-08-05] MEDS: COLLAGENASE CLOSTRIDIUM HIST. 30 GRAMS TUBE TP SCH (16:52)
--- NOTE | 2019-08-05 17:21 | EKG ---
Test Reason : Blood Pressure : / mmHG Vent. Rate : 065 BPM Atrial Rate : 065 BPM P-R Int : 168 ms QRS Dur : 076 ms QT Int : 334 ms P-R-T Axes : 098 171 134 degrees QTc Int : 347 ms POOR DATA QUALITY, INTERPRETATION MAY BE ADVERSELY AFFECTED SUSPECT ARM LEAD REVERSAL, INTERPRETATION ASSUMES NO REVERSAL NORMAL SINUS RHYTHM RECOMMEND REPEAT TRACING Confirmed by TONYA HYDE, FRANDY ([id number]) on 08/05/2019 5:21:25 PM Referred By: Confirmed By:FRANDY CASTANEDA MD
[2019-08-05] MEDS: DOCUSATE SODIUM 100 MG CAPSULE (FP) PO SCH (21:42)
[2019-08-05] MEDS: MIRTAZAPINE 15 MG TABLET (FP) PO SCH (21:43)
[2019-08-05] MEDS: SENNOSIDES 8.6MG TABLET (FP) PO SCH (21:43)
[2019-08-06 07:58] LABS: BLOOD UREA NITROGEN 14.8 mg/dL (7-18); CALCIUM 8.8 mg/dL (8.5-10.1); CREATININE 0.4 mg/dL (0.55-1.3); POTASSIUM 4.3 mmol/L (3.5-5.1)
--- NOTE | 2019-08-06 08:19 | PN ---
Progress Note, Physician Chief Complaint: Examined in bed. Confused on why she is in hospital. Asking to return back to [place] facility History of Present Illness: 89 year-old female, with a PMH significant for situs inversus, severe protein calorie malnutrition, and right hip fracture s/p repair (2019, SUNITA Hanna). 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 Patient is a poor historian, there is no one present at time of this admission to give parallel history. Information is taken from the medical record. - Current Medication List Current Medications: Active Medications Amino Acids (Prosource No Carb Liquid Pkt) 30 ml PO BID [facility] Last Admin: 08/05/19 21:42 Dose: 30 ml Collagenase (Santyl -) 1 applic TP DAILY [facility]; Protocol Last Admin: 08/05/19 16:52 Dose: 1 applic Docusate Sodium (Colace -) 200 mg PO HS [facility] Last Admin: 08/05/19 21:42 Dose: 200 mg Furosemide (Lasix -) 20 mg PO DAILY [facility] Last Admin: 08/05/19 09:48 Dose: 20 mg Heparin Sodium (Porcine) (Heparin -) 5,000 unit SQ BID [facility] Last Admin: 08/05/19 21:46 Dose: 5,000 unit Ceftriaxone Sodium 2 gm/ (Dextrose) 100 mls @ 100 mls/hr IVPB DAILY [facility]; Protocol Last Admin: 08/05/19 09:47 Dose: 100 mls/hr Mirtazapine (Remeron -) 7.5 mg PO HS [facility] Last Admin: 08/05/19 21:43 Dose: 7.5 mg Polyethylene Glycol (Miralax (For Daily Use) -) 17 gm PO DAILY PRN PRN Reason: CONSTIPATION Senna (Senna -) 1 tab PO HS [facility] Last Admin: 08/05/19 21:43 Dose: 1 tab - Objective Vital Signs: Vital Signs Temperature 97.7 F 08/06/19 05:55 Pulse Rate 81 08/06/19 05:55 Respiratory Rate 19 08/06/19 05:55 Blood Pressure 145/86 08/06/19 05:55 O2 Sat by Pulse Oximetry (%) 98 08/05/19 21:00 Additional Findings/Remarks: Constitutional: Yes: No Distress, Calm, Cachectic Eyes: Yes: WNL, Conjunctiva Clear HENT: Yes: WNL, Atraumatic, Normocephalic Neck: Yes: WNL, Supple, Trachea Midline Cardiovascular: Yes: WNL, Regular Rate and Rhythm Respiratory: Yes: WNL, Regular, CTA Bilaterally Gastrointestinal: Yes: WNL, Normal Bowel Sounds ...Rectal Exam: Yes: Deferred Genitourinary: Yes: Incontinence Musculoskeletal: Yes: WNL Extremities: Yes: Deformity (arm rests loosely in a sling; large, obvious deformity of humeral head with ecchymosis, not tender), Other (Gauze wrap c/d/i ; patient refused to allow dressing to be removed.) Edema: No Peripheral Pulses WNL: Yes Peripheral Pulses: Left Radial: 2+, Right Radial: 2+, Left Doralis Pedis: 2+, Right Dorsalis Pedis: 2+, Left Femoral: 2+, Right Femoral: 2+ Integumentary: Yes: Venous Stasis Changes, Other (dresing cdi) Wound/Incision: Yes: Dressing Dry and Intact Neurological: Yes: WNL, Alert, Oriented ...Motor Strength: LUE, LLE, RUE, RLE (generalized weakness. Right arm in sling) Labs: CBC, BMP 08/04/19 15:00 08/06/19 06:52 INR, PTT INR 1.00 (0.83-1.09) 08/04/19 15:00 - ....Imaging X-ray: Report Reviewed (right displaced proximal humerus fx) Problem List - Problems (1) Prophylactic measure Assessment/Plan: FEN Fluids: poor PO intake Electrolytes: monitor & replete as needed Nutrition: regular diet with supplements, prosource DVT moderate risk sq heparin Dispo Maintain as inpatient full code discharge planning Code(s): Z29.9 - ENCOUNTER FOR PROPHYLACTIC MEASURES, UNSPECIFIED (2) Situs inversus Assessment/Plan: noted on xray Code(s): Q89.3 - SITUS INVERSUS (3) Protein-calorie malnutrition, severe Assessment/Plan: severe malnutrition as evidence by BMI 13 temoral and muscle wasting c/w nutritional supplements procource BID turn and repositon q2h Code(s): E43 - UNSPECIFIED SEVERE PROTEIN-CALORIE MALNUTRITION (4) Foot ulcer Assessment/Plan: Seen by vascular To prevent DTI/Sacral ulcer from developing, recommend: -Reposition every two hours while in bed -Air mattress recommended -Use drawsheets and Trendelenburg when repositioning to reduce friction and shear -Manageincontinence via timely cleansing, use of appropriate incontinence disposables and use of barrier ointment to intact skin -Ensure adequate hydration/nutrition, supplementation per primary team -Ensure off-loading to all bony areas (heels, ankles, hips and tailbone) with Allevyn/Optifoam Code(s): L97.509 - NON-PRESSURE CHRONIC ULCER OTH PRT UNSP FOOT W UNSP SEVERITY (5) S/P right hip fracture Assessment/Plan: Right hip fracture repair (2019, [facility] Jacques) Code(s): Z87.81 - PERSONAL HISTORY OF (HEALED) TRAUMATIC FRACTURE (6) Osteomyelitis Assessment/Plan: sent from wound clinic for osteo treatment started on ceftriaxone ID following, Dr Cassius ibrahim, monitor wounds, WBC will determine course-if prolong will nee PICC Code(s): M86.9 - OSTEOMYELITIS, UNSPECIFIED Qualifiers: Osteomyelitis type: unspecified type Osteomyelitis location: foot Laterality: right Qualified Code(s): M86.9 - Osteomyelitis, unspecified (7) Fracture, humerus, proximal Assessment/Plan: right displaced proximal humerus fx seen by ortho-Given pts status and active infection surgery is not indicated maintain sling, NWB RUE ok to perform ROM of elbow,wrist and hand pain control Code(s): S42.209A - UNSP FRACTURE OF UPPER END OF UNSP HUMERUS, INIT FOR CLOS FX Visit type - Emergency Visit Emergency Visit: Yes ED Registration Date: 08/03/19 Care time: The patient presented to the Emergency Department on the above date and was hospitalized for further evaluation of their emergent condition. - New Patient This patient is new to me today: No - Critical Care Critical Care patient: No - Discharge Referral Referred to [facility] No
[2019-08-06 09:33] LABS: ALBUMIN 2.7 g/dl (3.4-5.0); BILIRUBIN,TOTAL 0.3 mg/dL (0.2-1); MAGNESIUM 2.1 mg/dL (1.8-2.4); TOT PROT 5.5 g/dl (6.4-8.2)
[2019-08-06 09:35] LABS: BASO % 0.9 % (0-2.0); EOS % 0.7 % (0-4.5); HEMATOCRIT 34.2 % (32.4-45.2); HEMOGLOBIN 11.7 GM/dL (10.7-15.3); LYMPH % 13.1 % (8-40); MCH 31.6 pg (25.7-33.7); MCHC 34.2 g/dl (32.0-36.0); MEAN CELL VOLUME 92.2 fl (80-96); MEAN PLT VOLUME 8.7 fl (7.5-11.1); MONO % 8.2 % (3.8-10.2); NEUT % 77.1 % (42.8-82.8); PLATELET COUNT 300 K/MM3 (134-434); RBC 3.71 M/mm3 (3.60-5.2); RDW 14.2 % (11.6-15.6)
[2019-08-06] MEDS ORDERED: DEXTROSE 5%-WATER 100 ML IVPB ONE (11:11)
[2019-08-06] MEDS: FUROSEMIDE 20 MG TABLET (FP) PO SCH (11:23)
[2019-08-06] MEDS: HEPARIN NA (PORCINE) 5,000 UNITS/ML 1ML VIAL SQ SCH ×2 (11:23→22:04)
[2019-08-06] MEDS: CEFTRIAXONE 2 GM in DEXTROSE 5%-WATER 100 ML IVPB SCH (11:23)
[2019-08-06] MEDS: AMINO ACIDS/PROTEIN HYDROLYS 30 ML LIQUID.PKT PO SCH ×2 (11:23→22:03)
[2019-08-06] MEDS: COLLAGENASE CLOSTRIDIUM HIST. 30 GRAMS TUBE TP SCH (11:24)
--- NOTE | 2019-08-06 14:06 | PN ---
Progress Note, Physician History of Present Illness: Pt remains alert, afebrile. c/o intermittent pain in RLE. - Current Medication List Current Medications: Active Medications Amino Acids (Prosource No Carb Liquid Pkt) 30 ml PO BID [facility] Last Admin: 08/06/19 11:23 Dose: 30 ml Collagenase (Santyl -) 1 applic TP DAILY [facility]; Protocol Last Admin: 08/06/19 11:24 Dose: 1 applic Docusate Sodium (Colace -) 200 mg PO [facility] Last Admin: 08/05/19 21:42 Dose: 200 mg Furosemide (Lasix -) 20 mg PO DAILY [facility] Last Admin: 08/06/19 11:23 Dose: 20 mg Heparin Sodium (Porcine) (Heparin -) 5,000 unit SQ BID [facility] Last Admin: 08/06/19 11:23 Dose: 5,000 unit Ceftriaxone Sodium 2 gm/ (Dextrose) 100 mls @ 100 mls/hr IVPB DAILY [facility]; Protocol Last Admin: 08/06/19 11:23 Dose: 100 mls/hr Mirtazapine (Remeron -) 7.5 mg PO [facility] Last Admin: 08/05/19 21:43 Dose: 7.5 mg Polyethylene Glycol (Miralax (For Daily Use) -) 17 gm PO DAILY PRN PRN Reason: CONSTIPATION Senna (Senna -) 1 tab PO [facility] Last Admin: 08/05/19 21:43 Dose: 1 tab - Objective Vital Signs: Vital Signs Temperature 97.7 F 08/06/19 05:55 Pulse Rate 81 08/06/19 05:55 Respiratory Rate 19 08/06/19 05:55 Blood Pressure 145/86 08/06/19 05:55 O2 Sat by Pulse Oximetry (%) 98 08/05/19 21:00 Constitutional: Yes: No Distress, Calm Cardiovascular: Yes: Regular Rate and Rhythm Respiratory: Yes: Regular Gastrointestinal: Yes: Normal Bowel Sounds, Soft Genitourinary: Yes: WNL Wound/Incision: Yes: Other (Rt heel eschar without drainage/fluctuance, +ankle ulcer with surrounding erythema) Neurological: Yes: Alert Labs: CBC, BMP 08/06/19 08:00 08/06/19 06:52 INR, PTT INR 1.00 (0.83-1.09) 08/04/19 15:00 Microbiology 08/03/19 13:19 Blood - Peripheral Venous Blood Culture - Preliminary NO GROWTH OBTAINED AFTER 48 HOURS, INCUBATION TO CONTINUE FOR 3 DAYS. 08/03/19 13:19 Blood - Peripheral Venous Blood Culture - Preliminary NO GROWTH OBTAINED AFTER 48 HOURS, INCUBATION TO CONTINUE FOR 3 DAYS. Problem List - Problems (1) Foot ulcer Code(s): L97.509 - NON-PRESSURE CHRONIC ULCER OTH PRT UNSP FOOT W UNSP SEVERITY (2) Fracture, humerus, proximal Code(s): S42.209A - UNSP FRACTURE OF UPPER END OF UNSP HUMERUS, INIT FOR CLOS FX (3) Protein-calorie malnutrition, severe Code(s): E43 - UNSPECIFIED SEVERE PROTEIN-CALORIE MALNUTRITION (4) 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 Assessment/Plan Rt foot ulcers/ cellulitis Rt heel eschar/Vascular insufficiency Humeral Fracture Severe Malnutrition Situs inversus -- continue antibiotics empirically -- Podiatry following -- Vascular does not recommend debridement, unlikely to heal -- Continue wound care/off-loading pt is afebrile, without distress
--- NOTE | 2019-08-06 17:22 | PN ---
Progress Note (short form) - Note Progress Note: Patient seen comfortably resting in bed. Pt is non-ambulatory. +multiple wounds with improved cellulitis, Improving cellulitis OM? Due to chronicity of wounds and prognosis of wounds maybe served better BKA on that side will discuss with vascular.
[2019-08-06] MEDS: ACETAMINOPHEN 500 MG TABLET (FP) PO PRN (17:39)
[2019-08-06] MEDS: DOCUSATE SODIUM 100 MG CAPSULE (FP) PO SCH (22:04)
[2019-08-06] MEDS: SENNOSIDES 8.6MG TABLET (FP) PO SCH (22:04)
[2019-08-06] MEDS: MIRTAZAPINE 15 MG TABLET (FP) PO SCH (22:04)
[2019-08-07 07:09] LABS: BASO % 0.8 % (0-2.0); EOS % 0.9 % (0-4.5); HEMATOCRIT 34.6 % (32.4-45.2); HEMOGLOBIN 11.8 GM/dL (10.7-15.3); LYMPH % 13.6 % (8-40); MCH 31.5 pg (25.7-33.7); MCHC 34.2 g/dl (32.0-36.0); MEAN CELL VOLUME 92.1 fl (80-96); MEAN PLT VOLUME 8.3 fl (7.5-11.1); MONO % 8.8 % (3.8-10.2); NEUT % 75.9 % (42.8-82.8); PLATELET COUNT 268 K/MM3 (134-434); RBC 3.76 M/mm3 (3.60-5.2); RDW 14.3 % (11.6-15.6); WHITE BLOOD COUNT 6.3 K/mm3 (4.0-10.0)
[2019-08-07 07:40] LABS: ALBUMIN 2.6 g/dl (3.4-5.0); BILIRUBIN,TOTAL 0.3 mg/dL (0.2-1); BLOOD UREA NITROGEN 15.9 mg/dL (7-18); CALCIUM 8.8 mg/dL (8.5-10.1); CREATININE 0.4 mg/dL (0.55-1.3); MAGNESIUM 2.2 mg/dL (1.8-2.4); POTASSIUM 4.6 mmol/L (3.5-5.1); TOT PROT 5.7 g/dl (6.4-8.2)
[2019-08-07] MEDS ORDERED: DEXTROSE 5%-WATER 100 ML IVPB ONE (09:58)
--- NOTE | 2019-08-07 12:50 | PN ---
Progress Note, Physician History of Present Illness: stable no new issues pain in the leg - Current Medication List Current Medications: Active Medications Acetaminophen (Tylenol -) 500 mg PO Q6H PRN PRN Reason: Fever Or Pain 1-5 Last Admin: 08/06/19 17:39 Dose: 500 mg Amino Acids (Prosource No Carb Liquid Pkt) 30 ml PO BID [facility] Last Admin: 08/06/19 22:03 Dose: 30 ml Collagenase (Santyl -) 1 applic TP DAILY [facility]; Protocol Last Admin: 08/06/19 11:24 Dose: 1 applic Docusate Sodium (Colace -) 200 mg PO HS [facility] Last Admin: 08/06/19 22:04 Dose: 200 mg Furosemide (Lasix -) 20 mg PO DAILY [facility] Last Admin: 08/06/19 11:23 Dose: 20 mg Heparin Sodium (Porcine) (Heparin -) 5,000 unit SQ BID [facility] Last Admin: 08/06/19 22:04 Dose: 5,000 unit Ceftriaxone Sodium 2 gm/ (Dextrose) 100 mls @ 100 mls/hr IVPB DAILY [facility]; Protocol Last Admin: 08/06/19 11:23 Dose: 100 mls/hr Mirtazapine (Remeron -) 7.5 mg PO HS [facility] Last Admin: 08/06/19 22:04 Dose: 7.5 mg Polyethylene Glycol (Miralax (For Daily Use) -) 17 gm PO DAILY PRN PRN Reason: CONSTIPATION Senna (Senna -) 1 tab PO HS [facility] Last Admin: 08/06/19 22:04 Dose: 1 tab - Objective Vital Signs: Vital Signs Temperature 97.4 F L 08/07/19 06:00 Pulse Rate 72 08/07/19 06:00 Respiratory Rate 18 08/07/19 06:00 Blood Pressure 145/78 08/07/19 06:00 O2 Sat by Pulse Oximetry (%) 98 08/06/19 21:00 Constitutional: Yes: No Distress, Calm Cardiovascular: Yes: S1, S2 Respiratory: Yes: Regular, CTA Bilaterally Gastrointestinal: Yes: Normal Bowel Sounds, Soft Musculoskeletal: Yes: WNL Extremities: Yes: Other Wound/Incision: Yes: Other Neurological: Yes: Alert Labs: CBC, BMP 08/07/19 06:35 08/07/19 06:35 INR, PTT INR 1.00 (0.83-1.09) 08/04/19 15:00 Assessment/Plan Problem List - Problems (1) Foot ulcer Code(s): L97.509 - NON-PRESSURE CHRONIC ULCER OTH PRT UNSP FOOT W UNSP SEVERITY (2) Fracture, humerus, proximal Code(s): S42.209A - UNSP FRACTURE OF UPPER END OF UNSP HUMERUS, INIT FOR CLOS FX (3) Protein-calorie malnutrition, severe Code(s): E43 - UNSPECIFIED SEVERE PROTEIN-CALORIE MALNUTRITION (4) 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 Assessment/Plan Rt foot multiple foot ulcers/ cellulitis Rt heel eschar/Vascular insufficiency Humeral Fracture Severe Malnutrition plan continue current mgmt off loadin
--- NOTE | 2019-08-07 12:52 | PN ---
Progress Note (short form) - Note Progress Note: Patient seen complaining of pain right leg in bed. Pt is non-ambulatory. +multiple wounds with improved cellulitis, Improving cellulitis OM? Continue santyl to wounds. Offload heels. Will follow.
[2019-08-07] MEDS: HEPARIN NA (PORCINE) 5,000 UNITS/ML 1ML VIAL SQ SCH ×2 (14:30→21:30)
--- NOTE | 2019-08-07 14:30 | PN ---
Progress Note, Physician Chief Complaint: Examined in bed. anxious to return back to [place] facility. Pending for PICC placement for senior living abx History of Present Illness: 89 year-old female, with a PMH significant for situs inversus, severe protein calorie malnutrition, and right hip fracture s/p repair (2019, SUNITA Hanna). 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 Patient is a poor historian, there is no one present at time of this admission to give parallel history. Information is taken from the medical record. - Current Medication List Current Medications: Active Medications Acetaminophen (Tylenol -) 500 mg PO Q6H PRN PRN Reason: Fever Or Pain 1-5 Last Admin: 08/06/19 17:39 Dose: 500 mg Amino Acids (Prosource No Carb Liquid Pkt) 30 ml PO BID [facility] Last Admin: 08/06/19 22:03 Dose: 30 ml Collagenase (Santyl -) 1 applic TP DAILY [facility]; Protocol Last Admin: 08/06/19 11:24 Dose: 1 applic Docusate Sodium (Colace -) 200 mg PO HS [facility] Last Admin: 08/06/19 22:04 Dose: 200 mg Furosemide (Lasix -) 20 mg PO DAILY [facility] Last Admin: 08/06/19 11:23 Dose: 20 mg Heparin Sodium (Porcine) (Heparin -) 5,000 unit SQ BID [facility] Last Admin: 08/06/19 22:04 Dose: 5,000 unit Ceftriaxone Sodium 2 gm/ (Dextrose) 100 mls @ 100 mls/hr IVPB DAILY [facility]; Protocol Last Admin: 08/06/19 11:23 Dose: 100 mls/hr Mirtazapine (Remeron -) 7.5 mg PO HS [facility] Last Admin: 08/06/19 22:04 Dose: 7.5 mg Polyethylene Glycol (Miralax (For Daily Use) -) 17 gm PO DAILY PRN PRN Reason: CONSTIPATION Senna (Senna -) 1 tab PO HS [facility] Last Admin: 08/06/19 22:04 Dose: 1 tab - Objective Vital Signs: Vital Signs Temperature 98 F 08/07/19 10:00 Pulse Rate 73 08/07/19 10:00 Respiratory Rate 20 08/07/19 10:00 Blood Pressure 99/43 L 08/07/19 10:00 O2 Sat by Pulse Oximetry (%) 98 08/06/19 21:00 Additional Findings/Remarks: Constitutional: Yes: No Distress, Calm, Cachectic Eyes: Yes: WNL, Conjunctiva Clear HENT: Yes: WNL, Atraumatic, Normocephalic Neck: Yes: WNL, Supple, Trachea Midline Cardiovascular: Yes: WNL, Regular Rate and Rhythm Respiratory: Yes: WNL, Regular, CTA Bilaterally Gastrointestinal: Yes: WNL, Normal Bowel Sounds ...Rectal Exam: Yes: Deferred Genitourinary: Yes: Incontinence Musculoskeletal: Yes: WNL Extremities: Yes: Deformity (arm rests loosely in a sling; large, obvious deformity of humeral head with ecchymosis, not tender), Other (Gauze wrap c/d/i ; ) Edema: No Peripheral Pulses WNL: Yes Peripheral Pulses: Left Radial: 2+, Right Radial: 2+, Left Doralis Pedis: 2+, Right Dorsalis Pedis: 2+, Left Femoral: 2+, Right Femoral: 2+ Integumentary: Yes: Venous Stasis Changes, Other (dresing cdi) Wound/Incision: Yes: Dressing Dry and Intact Neurological: Yes: WNL, Alert, Oriented ...Motor Strength: LUE, LLE, RUE, RLE (generalized weakness. Right arm in sling) Labs: CBC, BMP 08/07/19 06:35 08/07/19 06:35 INR, PTT INR 1.00 (0.83-1.09) 08/04/19 15:00 Problem List - Problems (1) Prophylactic measure Assessment/Plan: FEN Fluids: poor PO intake Electrolytes: monitor & replete as needed Nutrition: regular diet with supplements, prosource DVT moderate risk sq heparin Dispo Maintain as inpatient full code discharge planning Code(s): Z29.9 - ENCOUNTER FOR PROPHYLACTIC MEASURES, UNSPECIFIED (2) Situs inversus Assessment/Plan: noted on xray Code(s): Q89.3 - SITUS INVERSUS (3) Protein-calorie malnutrition, severe Assessment/Plan: severe malnutrition as evidence by BMI 13 temoral and muscle wasting c/w nutritional supplements procource BID turn and repositon q2h Code(s): E43 - UNSPECIFIED SEVERE PROTEIN-CALORIE MALNUTRITION (4) Foot ulcer Assessment/Plan: Seen by vascular To prevent DTI/Sacral ulcer from developing, recommend: -Reposition every two hours while in bed -Air mattress recommended -Use drawsheets and Trendelenburg when repositioning to reduce friction and shear -Manageincontinence via timely cleansing, use of appropriate incontinence disposables and use of barrier ointment to intact skin -Ensure adequate hydration/nutrition, supplementation per primary team -Ensure off-loading to all bony areas (heels, ankles, hips and tailbone) with Allevyn/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 Pending PICC c/w abx x 6 wks Code(s): L97.509 - NON-PRESSURE CHRONIC ULCER OTH PRT UNSP FOOT W UNSP SEVERITY (5) S/P right hip fracture Assessment/Plan: Right hip fracture repair (2019, SUNITA Hanna) Code(s): Z87.81 - PERSONAL HISTORY OF (HEALED) TRAUMATIC FRACTURE (6) Osteomyelitis Assessment/Plan: sent from wound clinic for osteo treatment ceftriaxone x 6 wks ID following, Dr Hammonds [email or web address], monitor wounds, WBC Code(s): M86.9 - OSTEOMYELITIS, UNSPECIFIED Qualifiers: Osteomyelitis type: unspecified type Osteomyelitis location: foot Laterality: right Qualified Code(s): M86.9 - Osteomyelitis, unspecified (7) Fracture, humerus, proximal Assessment/Plan: right displaced proximal humerus fx seen by ortho-Given pts status and active infection surgery is not indicated maintain sling, NWB RUE ok to perform ROM of elbow,wrist and hand pain control Code(s): S42.209A - UNSP FRACTURE OF UPPER END OF UNSP HUMERUS, INIT FOR CLOS FX Visit type - Emergency Visit Emergency Visit: Yes ED Registration Date: 08/03/19 Care time: The patient presented to the Emergency Department on the above date and was hospitalized for further evaluation of their emergent condition. - New Patient This patient is new to me today: No - Critical Care Critical Care patient: No - Discharge Referral Referred to [facility] Med P.C.: No
[2019-08-07] MEDS: COLLAGENASE CLOSTRIDIUM HIST. 30 GRAMS TUBE TP SCH (14:31)
[2019-08-07] MEDS: CEFTRIAXONE 2 GM in DEXTROSE 5%-WATER 100 ML IVPB SCH (14:31)
[2019-08-07] MEDS: FUROSEMIDE 20 MG TABLET (FP) PO SCH (14:31)
[2019-08-07] MEDS: AMINO ACIDS/PROTEIN HYDROLYS 30 ML LIQUID.PKT PO SCH ×3 (14:31→21:52)
--- NOTE | 2019-08-07 16:59 | PN ---
Progress Note (short form) - Note Progress Note: Vascular Surgery Pt seen and examined. Pt with PICC line placed today Pt here for worsening ulcers to right foot. Pt does not have palpable pulses to right foot. Will order CTA to look at runoff to legs. Levi Nayak DO
[2019-08-07] MEDS: MIRTAZAPINE 15 MG TABLET (FP) PO SCH (21:28)
[2019-08-07] MEDS: SENNOSIDES 8.6MG TABLET (FP) PO SCH (21:29)
[2019-08-07] MEDS: DOCUSATE SODIUM 100 MG CAPSULE (FP) PO SCH (21:29)
[2019-08-08 07:36] LABS: BASO % 0.6 % (0-2.0); EOS % 0.9 % (0-4.5); HEMOGLOBIN 11.8 GM/dL (10.7-15.3); LYMPH % 9.3 % (8-40); MCH 31.2 pg (25.7-33.7); MCHC 33.7 g/dl (32.0-36.0); MEAN CELL VOLUME 92.4 fl (80-96); MEAN PLT VOLUME 8.1 fl (7.5-11.1); MONO % 7.4 % (3.8-10.2); NEUT % 81.8 % (42.8-82.8); PLATELET COUNT 245 K/MM3 (134-434); RBC 3.79 M/mm3 (3.60-5.2); RDW 14.5 % (11.6-15.6); WHITE BLOOD COUNT 7.6 K/mm3 (4.0-10.0)
[2019-08-08 08:50] LABS: ALBUMIN 2.7 g/dl (3.4-5.0); BILIRUBIN,TOTAL 0.3 mg/dL (0.2-1); CALCIUM 8.5 mg/dL (8.5-10.1); CREATININE 0.4 mg/dL (0.55-1.3); MAGNESIUM 2.3 mg/dL (1.8-2.4); POTASSIUM 4.6 mmol/L (3.5-5.1); TOT PROT 5.8 g/dl (6.4-8.2)
[2019-08-08] MEDS ORDERED: DEXTROSE 5%-WATER 100 ML IVPB ONE (09:23)
--- NOTE | 2019-08-08 10:07 | PN ---
Physical Exam: SUBJECTIVE: Patient seen and examined at the bedside. awake and alert. OBJECTIVE: Patient is an 89 year-old female, with a past medical history of situs inversus , severe protein calorie malnutrition, and right hip fracture s/p repair (2019, SUNITA Hanna). 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 A PICC line was placed for terminal clerk antibiotics for osteomyelitis of right foot. Vital Signs Period Temp Pulse Resp BP Sys/Mena Pulse Ox Last 24 Hr 97.4 F-97.7 F 77-83 16-20 125-141/59-80 96 GENERAL: The patient is awake, alert, forgetful HEAD: Normal with no signs of trauma. EYES: PERRL, extraocular movements intact, sclera anicteric, conjunctiva clear. No ptosis. ENT: Ears normal, nares patent, oropharynx clear without exudates, dry mucous membranes. NECK: Trachea midline, full range of motion, supple. LUNGS: Breath sounds equal, clear to auscultation bilaterally HEART: Regular rate and rhythm ABDOMEN: Soft, nontender, nondistended, normoactive bowel sounds EXTREMITIES: right arm rests loosely in a sling; large, obvious deformity of humeral head with ecchymosis, not tender NEUROLOGICAL: Normal speech, mostly bedbound PSYCH: Normal mood, normal affect. SKIN: r Laboratory Results - last 24 hr 08/08/19 08/08/19 06:30 06:30 WBC 7.6 RBC 3.79 Hgb 11.8 Hct 35.0 MCV 92.4 MCH 31.2 MCHC 33.7 RDW 14.5 Plt Count 245 MPV 8.1 Absolute Neuts (auto) 6.2 Neutrophils % 81.8 Lymphocytes % 9.3 D Monocytes % 7.4 Eosinophils % 0.9 Basophils % 0.6 Nucleated RBC % 0 Sodium 135 L Potassium 4.6 Chloride 100 Carbon Dioxide 24 Anion Gap 10 BUN 14.0 Creatinine 0.4 L Est GFR (CKD-EPI)AfAm 107.03 Est GFR (CKD-EPI)NonAf 92.34 Random Glucose 74 Calcium 8.5 Magnesium 2.3 Total Bilirubin 0.3 AST 39 H ALT 32 Alkaline Phosphatase 210 H Total Protein 5.8 L Albumin 2.7 L Active Medications Generic Name Dose Route Start Last Admin Trade Name Freq PRN Reason Stop Dose Admin Acetaminophen 500 mg 08/06/19 16:17 08/06/19 17:39 Tylenol - PO 500 mg Q6H PRN Administration Fever Or Pain 1-5 Amino Acids 30 ml 08/03/19 22:00 08/07/19 21:52 Prosource No Carb Liquid Pkt PO Not Given BID [facility] Collagenase 1 applic 08/04/19 17:30 08/07/19 14:31 Santyl - TP 1 applic DAILY [facility] Administration Protocol Docusate Sodium 200 mg 08/03/19 22:00 08/07/19 21:29 Colace - PO 200 mg HS [facility] Administration Furosemide 20 mg 08/04/19 10:00 08/07/19 14:31 Lasix - PO 20 mg DAILY [facility] Administration Heparin Sodium (Porcine) 5,000 unit 08/03/19 22:00 08/07/19 21:30 Heparin - SQ 5,000 unit BID [facility] Administration Ceftriaxone Sodium 2 gm/ 100 mls @ 100 mls/hr 08/04/19 10:00 08/07/19 14:31 Dextrose IVPB 100 mls/hr DAILY [facility] Administration Protocol Mirtazapine 7.5 mg 08/03/19 22:00 08/07/19 21:28 Remeron - PO 7.5 mg HS [facility] Administration Polyethylene Glycol 17 gm 08/03/19 20:30 Miralax (For Daily Use) - PO DAILY PRN CONSTIPATION Senna 1 tab 08/03/19 22:00 08/07/19 21:29 Senna - PO 1 tab HS [facility] Administration ASSESSMENT/PLAN: Problem List - Problems (1) Foot ulcer Assessment/Plan: 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 Code(s): L97.509 - NON-PRESSURE CHRONIC ULCER OTH PRT UNSP FOOT W UNSP SEVERITY (2) Fracture, humerus, proximal Assessment/Plan: continue with sling, supportive care Code(s): S42.209A - UNSP FRACTURE OF UPPER END OF UNSP HUMERUS, INIT FOR CLOS FX (3) Osteomyelitis Code(s): M86.9 - OSTEOMYELITIS, UNSPECIFIED Qualifiers: Osteomyelitis type: unspecified type Osteomyelitis location: foot Laterality: right Qualified Code(s): M86.9 - Osteomyelitis, unspecified (4) Protein-calorie malnutrition, severe Assessment/Plan: dietary following on supplements patient high risk for further skin breakdown Code(s): E43 - UNSPECIFIED SEVERE PROTEIN-CALORIE MALNUTRITION (5) S/P right hip fracture Code(s): Z87.81 - PERSONAL HISTORY OF (HEALED) TRAUMATIC FRACTURE (6) 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 (7) Prophylactic measure Assessment/Plan: fen tolerating po monitor electrolytes full code Code(s): Z29.9 - ENCOUNTER FOR PROPHYLACTIC MEASURES, UNSPECIFIED Visit type - Emergency Visit Emergency Visit: Yes ED Registration Date: 08/03/19 Care time: The patient presented to the Emergency Department on the above date and was hospitalized for further evaluation of their emergent condition. - New Patient This patient is new to me today: Yes Date on this admission: 08/08/19 - Critical Care Critical Care patient: No - Discharge Referral Referred to [facility] Med P.C.: No
[2019-08-08] MEDS: AMINO ACIDS/PROTEIN HYDROLYS 30 ML LIQUID.PKT PO SCH ×2 (10:23→21:04)
[2019-08-08] MEDS: CEFTRIAXONE 2 GM in DEXTROSE 5%-WATER 100 ML IVPB SCH (10:23)
[2019-08-08] MEDS: HEPARIN NA (PORCINE) 5,000 UNITS/ML 1ML VIAL SQ SCH ×2 (10:24→21:04)
[2019-08-08] MEDS: FUROSEMIDE 20 MG TABLET (FP) PO SCH (10:24)
[2019-08-08] MEDS: COLLAGENASE CLOSTRIDIUM HIST. 30 GRAMS TUBE TP SCH (10:24)
--- NOTE | 2019-08-08 12:24 | PN ---
Progress Note, Physician History of Present Illness: stable no new issues - Current Medication List Current Medications: Active Medications Acetaminophen (Tylenol -) 500 mg PO Q6H PRN PRN Reason: Fever Or Pain 1-5 Last Admin: 08/06/19 17:39 Dose: 500 mg Amino Acids (Prosource No Carb Liquid Pkt) 30 ml PO BID [facility] Last Admin: 08/08/19 10:23 Dose: 30 ml Collagenase (Santyl -) 1 applic TP DAILY [facility]; Protocol Last Admin: 08/08/19 10:24 Dose: 1 applic Docusate Sodium (Colace -) 200 mg PO HS [facility] Last Admin: 08/07/19 21:29 Dose: 200 mg Furosemide (Lasix -) 20 mg PO DAILY [facility] Last Admin: 08/08/19 10:24 Dose: 20 mg Heparin Sodium (Porcine) (Heparin -) 5,000 unit SQ BID [facility] Last Admin: 08/08/19 10:24 Dose: 5,000 unit Ceftriaxone Sodium 2 gm/ (Dextrose) 100 mls @ 100 mls/hr IVPB DAILY [facility]; Protocol Last Admin: 08/08/19 10:23 Dose: 100 mls/hr Mirtazapine (Remeron -) 7.5 mg PO HS [facility] Last Admin: 08/07/19 21:28 Dose: 7.5 mg Polyethylene Glycol (Miralax (For Daily Use) -) 17 gm PO DAILY PRN PRN Reason: CONSTIPATION Senna (Senna -) 1 tab PO HS [facility] Last Admin: 08/07/19 21:29 Dose: 1 tab - Objective Vital Signs: Vital Signs Temperature 97.5 F L 08/08/19 08:29 Pulse Rate 81 08/08/19 08:29 Respiratory Rate 16 08/08/19 08:29 Blood Pressure 141/68 08/08/19 08:29 O2 Sat by Pulse Oximetry (%) 96 08/07/19 21:00 Constitutional: Yes: No Distress, Calm, Other (failure to thrive) Cardiovascular: Yes: S1, S2 Respiratory: Yes: Regular, CTA Bilaterally Musculoskeletal: Yes: WNL Extremities: Yes: Other Neurological: Yes: Alert, Oriented Psychiatric: Yes: Alert, Oriented Labs: CBC, BMP 08/08/19 06:30 08/08/19 06:30 INR, PTT INR 1.00 (0.83-1.09) 08/04/19 15:00 Assessment/Plan Problem List - Problems (1) Foot ulcer Code(s): L97.509 - NON-PRESSURE CHRONIC ULCER OTH PRT UNSP FOOT W UNSP SEVERITY (2) Fracture, humerus, proximal Code(s): S42.209A - UNSP FRACTURE OF UPPER END OF UNSP HUMERUS, INIT FOR CLOS FX (3) Protein-calorie malnutrition, severe Code(s): E43 - UNSPECIFIED SEVERE PROTEIN-CALORIE MALNUTRITION (4) 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 Assessment/Plan Rt foot multiple foot ulcers/ cellulitis Rt heel eschar/Vascular insufficiency Humeral Fracture Severe Malnutrition plan continue current mgmt off loading
[2019-08-08] MEDS: AMOX TR/POT CLAV 500MG/125MG TABLETS (FP) PO SCH (17:34)
[2019-08-08 17:39] VITALS: BMI 13.6
[2019-08-08] MEDS: DOCUSATE SODIUM 100 MG CAPSULE (FP) PO SCH (21:05)
[2019-08-08] MEDS: SENNOSIDES 8.6MG TABLET (FP) PO SCH (21:05)
[2019-08-08] MEDS: MIRTAZAPINE 15 MG TABLET (FP) PO SCH (21:05)
[2019-08-09 07:14] LABS: BASO % 0.9 % (0-2.0); EOS % 1.2 % (0-4.5); HEMATOCRIT 32.1 % (32.4-45.2); HEMOGLOBIN 11.1 GM/dL (10.7-15.3); MCHC 34.7 g/dl (32.0-36.0); MEAN CELL VOLUME 92.2 fl (80-96); MEAN PLT VOLUME 8.4 fl (7.5-11.1); MONO % 7.7 % (3.8-10.2); NEUT % 80.2 % (42.8-82.8); PLATELET COUNT 250 K/MM3 (134-434); RBC 3.48 M/mm3 (3.60-5.2); RDW 14.3 % (11.6-15.6); WHITE BLOOD COUNT 7.6 K/mm3 (4.0-10.0)
[2019-08-09 07:41] LABS: ALBUMIN 2.6 g/dl (3.4-5.0); BILIRUBIN,TOTAL 0.3 mg/dL (0.2-1); BLOOD UREA NITROGEN 19.2 mg/dL (7-18); CALCIUM 8.4 mg/dL (8.5-10.1); CREATININE 0.3 mg/dL (0.55-1.3); MAGNESIUM 2.4 mg/dL (1.8-2.4); TOT PROT 5.6 g/dl (6.4-8.2)
[2019-08-09] MEDS: AMOX TR/POT CLAV 500MG/125MG TABLETS (FP) PO SCH ×2 (08:55→17:46)
[2019-08-09] MEDS ORDERED: PT OWN MED DRAWER 7, Y5N ONE (09:13)
[2019-08-09] MEDS: HEPARIN NA (PORCINE) 5,000 UNITS/ML 1ML VIAL SQ SCH ×2 (09:21→22:26)
[2019-08-09] MEDS: AMINO ACIDS/PROTEIN HYDROLYS 30 ML LIQUID.PKT PO SCH ×2 (09:21→22:27)
[2019-08-09] MEDS: FUROSEMIDE 20 MG TABLET (FP) PO SCH (09:22)
[2019-08-09] MEDS: COLLAGENASE CLOSTRIDIUM HIST. 30 GRAMS TUBE TP SCH (10:46)
--- NOTE | 2019-08-09 11:14 | PN ---
Progress Note (short form) - Note Progress Note: Ortho Pt seen and examined s/p right proximal humerus fx Selected Entries 08/09/19 09:43 Temperature 97.9 F Pulse Rate 79 Respiratory 18 Rate Blood Pressure 147/88 + deformity, good rom of elbow and wrist, nvi a/p Orthopedically stable maintain sling ROM exercises for elbow, wrist and hand pain control d/c planning d/w Dr. Dunbar
--- NOTE | 2019-08-09 11:18 | PN ---
Physical Exam: SUBJECTIVE: Patient seen and examined at the bedside. denies any discomfort. denies pain. OBJECTIVE: Patient is an 89 year-old female, with a past medical history of situs inversus , severe protein calorie malnutrition, and right hip fracture s/p repair (2019, SUNITA Hanna). 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 Vital Signs Period Temp Pulse Resp BP Sys/Mena Pulse Ox Last 24 Hr 97.9 F-98.4 F 77-96 18-18 97-150/48-88 GENERAL: The patient is awake, alert, cachectic. HEAD: Normal with no signs of trauma. EYES: PERRL, extraocular movements intact, sclera anicteric, conjunctiva clear. No ptosis. ENT: Ears normal, nares patent, oropharynx clear without exudates, dry mucous membranes. NECK: Trachea midline, full range of motion, supple. LUNGS: Breath sounds equal, clear to auscultation bilaterally HEART: Regular rate and rhythm ABDOMEN: Soft, nontender, nondistended, normoactive bowel sounds EXTREMITIES: right arm rests loosely in a sling; large, obvious deformity of humeral head with ecchymosis, not tender. right foot with multiple ulcers. Right foot: multiple, ulcers to right foot including an unsteageable to right heel. NEUROLOGICAL: Normal speech, mostly bedbound PSYCH: Normal mood, normal affect. Laboratory Results - last 24 hr 08/09/19 08/09/19 06:25 06:25 WBC 7.6 RBC 3.48 L Hgb 11.1 Hct 32.1 L MCV 92.2 MCH 32.0 MCHC 34.7 RDW 14.3 Plt Count 250 MPV 8.4 Absolute Neuts (auto) 6.1 Neutrophils % 80.2 Lymphocytes % 10.0 Monocytes % 7.7 Eosinophils % 1.2 Basophils % 0.9 Nucleated RBC % 0 Sodium 136 Potassium 4.0 Chloride 99 Carbon Dioxide 31 Anion Gap 6 L BUN 19.2 H Creatinine 0.3 L Est GFR (CKD-EPI)AfAm 117.65 Est GFR (CKD-EPI)NonAf 101.51 Random Glucose 68 L Calcium 8.4 L Magnesium 2.4 Total Bilirubin 0.3 AST 26 ALT 32 Alkaline Phosphatase 196 H Total Protein 5.6 L Albumin 2.6 L Active Medications Generic Name Dose Route Start Last Admin Trade Name Freq PRN Reason Stop Dose Admin Acetaminophen 500 mg 08/06/19 16:17 08/06/19 17:39 Tylenol - PO 500 mg Q6H PRN Administration Fever Or Pain 1-5 Amino Acids 30 ml 08/03/19 22:00 08/09/19 09:21 Prosource No Carb Liquid Pkt PO 30 ml BID [facility] Administration Amoxicillin/Clavulanate Potassium 1 tab 08/08/19 17:30 08/09/19 08:55 Augmentin - 500mg Tablet PO 1 tab BID@0800,1730 [facility] Administration Collagenase 1 applic 08/04/19 17:30 08/08/19 10:24 Santyl - TP 1 applic DAILY [facility] Administration Protocol Docusate Sodium 200 mg 08/03/19 22:00 08/08/19 21:05 Colace - PO 200 mg HS [facility] Administration Furosemide 20 mg 08/04/19 10:00 08/09/19 09:22 Lasix - PO 20 mg DAILY [facility] Administration Heparin Sodium (Porcine) 5,000 unit 08/03/19 22:00 08/09/19 09:21 Heparin - SQ 5,000 unit BID [facility] Administration Mirtazapine 7.5 mg 08/03/19 22:00 08/08/19 21:05 Remeron - PO 7.5 mg HS [facility] Administration Polyethylene Glycol 17 gm 08/03/19 20:30 Miralax (For Daily Use) - PO DAILY PRN CONSTIPATION Senna 1 tab 08/03/19 22:00 08/08/19 21:05 Senna - PO 1 tab HS [facility] Administration ASSESSMENT/PLAN: Problem List - Problems (1) Foot ulcer Assessment/Plan: right paper twister tender to touch and with multiple foot ulcers/cellulitis/ unsteageable of right heel Vascular insufficiency wound care daily with [facility] for vascular study, CTA with runoff per vascular PICC placed patient on augmentin per ID, ceftriaxone discontinued Code(s): L97.509 - NON-PRESSURE CHRONIC ULCER OTH PRT UNSP FOOT W UNSP SEVERITY (2) Fracture, humerus, proximal Assessment/Plan: continue with sling, supportive care Code(s): S42.209A - UNSP FRACTURE OF UPPER END OF UNSP HUMERUS, INIT FOR CLOS FX (3) Protein-calorie malnutrition, severe Assessment/Plan: dietary following on supplements patient high risk for further skin breakdown Code(s): E43 - UNSPECIFIED SEVERE PROTEIN-CALORIE MALNUTRITION (4) S/P right hip fracture Code(s): Z87.81 - PERSONAL HISTORY OF (HEALED) TRAUMATIC FRACTURE (5) 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 (6) Prophylactic measure Assessment/Plan: fen tolerating po monitor electrolytes full code Code(s): Z29.9 - ENCOUNTER FOR PROPHYLACTIC MEASURES, UNSPECIFIED Visit type - Emergency Visit Emergency Visit: Yes ED Registration Date: 08/03/19 Care time: The patient presented to the Emergency Department on the above date and was hospitalized for further evaluation of their emergent condition. - New Patient This patient is new to me today: No - Critical Care Critical Care patient: No - Discharge Referral Referred to [facility] Med P.C.: No
--- NOTE | 2019-08-09 11:36 | PN ---
Progress Note, Physician History of Present Illness: stable pain failure to thrive - Current Medication List Current Medications: Active Medications Acetaminophen (Tylenol -) 500 mg PO Q6H PRN PRN Reason: Fever Or Pain 1-5 Last Admin: 08/06/19 17:39 Dose: 500 mg Amino Acids (Prosource No Carb Liquid Pkt) 30 ml PO BID [facility] Last Admin: 08/09/19 09:21 Dose: 30 ml Amoxicillin/Clavulanate Potassium (Augmentin - 500mg Tablet) 1 tab PO BID@0800, 1730 [facility] Last Admin: 08/09/19 08:55 Dose: 1 tab Collagenase (Santyl -) 1 applic TP DAILY [facility]; Protocol Last Admin: 08/08/19 10:24 Dose: 1 applic Docusate Sodium (Colace -) 200 mg PO [facility] Last Admin: 08/08/19 21:05 Dose: 200 mg Furosemide (Lasix -) 20 mg PO DAILY [facility] Last Admin: 08/09/19 09:22 Dose: 20 mg Heparin Sodium (Porcine) (Heparin -) 5,000 unit SQ BID [facility] Last Admin: 08/09/19 09:21 Dose: 5,000 unit Mirtazapine (Remeron -) 7.5 mg PO [facility] Last Admin: 08/08/19 21:05 Dose: 7.5 mg Polyethylene Glycol (Miralax (For Daily Use) -) 17 gm PO DAILY PRN PRN Reason: CONSTIPATION Senna (Senna -) 1 tab PO HS [facility] Last Admin: 08/08/19 21:05 Dose: 1 tab - Objective Vital Signs: Vital Signs Temperature 97.9 F 08/09/19 09:43 Pulse Rate 79 08/09/19 09:43 Respiratory Rate 18 08/09/19 09:43 Blood Pressure 147/88 08/09/19 09:43 O2 Sat by Pulse Oximetry (%) 96 08/07/19 21:00 Constitutional: Yes: Calm, Mild Distress, Other (failure to thrive) Cardiovascular: Yes: S1, S2 Respiratory: Yes: Regular, CTA Bilaterally Gastrointestinal: Yes: Normal Bowel Sounds, Soft Musculoskeletal: Yes: Other Extremities: Yes: Other Wound/Incision: Yes: Dressing Dry and Intact Neurological: Yes: Alert, Oriented Labs: CBC, BMP 08/09/19 06:25 08/09/19 06:25 INR, PTT INR 1.00 (0.83-1.09) 08/04/19 15:00 Assessment/Plan Problem List - Problems (1) Foot ulcer Code(s): L97.509 - NON-PRESSURE CHRONIC ULCER OTH PRT UNSP FOOT W UNSP SEVERITY (2) Fracture, humerus, proximal Code(s): S42.209A - UNSP FRACTURE OF UPPER END OF UNSP HUMERUS, INIT FOR CLOS FX (3) Protein-calorie malnutrition, severe Code(s): E43 - UNSPECIFIED SEVERE PROTEIN-CALORIE MALNUTRITION (4) 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 Assessment/Plan Rt foot multiple foot ulcers/ cellulitis Rt heel eschar/Vascular insufficiency Humeral Fracture Severe Malnutrition plan continue current mgmt off loading
[2019-08-09] MEDS: ACETAMINOPHEN 500 MG TABLET (FP) PO PRN (17:52)
--- NOTE | 2019-08-09 20:10 | PN ---
Progress Note (short form) - Note Progress Note: Patient seen this afternoon complaining of pain right leg in bed. +multiple wounds with improved cellulitis, Improving cellulitis OM? Continue palliative care to wounds. Offload heels. Will follow.
[2019-08-09] MEDS: MIRTAZAPINE 15 MG TABLET (FP) PO SCH (22:26)
[2019-08-09] MEDS: SENNOSIDES 8.6MG TABLET (FP) PO SCH (22:26)
[2019-08-09] MEDS: DOCUSATE SODIUM 100 MG CAPSULE (FP) PO SCH (22:27)
[2019-08-10 07:25] LABS: BASO % 1.1 % (0-2.0); EOS % 1.8 % (0-4.5); HEMATOCRIT 31.8 % (32.4-45.2); HEMOGLOBIN 11.1 GM/dL (10.7-15.3); LYMPH % 11.7 % (8-40); MCH 31.8 pg (25.7-33.7); MCHC 34.9 g/dl (32.0-36.0); MEAN CELL VOLUME 91.1 fl (80-96); MONO % 10.9 % (3.8-10.2); NEUT % 74.5 % (42.8-82.8); PLATELET COUNT 221 K/MM3 (134-434); RBC 3.49 M/mm3 (3.60-5.2); RDW 14.9 % (11.6-15.6); WHITE BLOOD COUNT 5.2 K/mm3 (4.0-10.0)
[2019-08-10 08:00] LABS: ALBUMIN 2.4 g/dl (3.4-5.0); BILIRUBIN,TOTAL 0.3 mg/dL (0.2-1); BLOOD UREA NITROGEN 15.2 mg/dL (7-18); CALCIUM 8.2 mg/dL (8.5-10.1); CREATININE 0.3 mg/dL (0.55-1.3); MAGNESIUM 2.1 mg/dL (1.8-2.4); POTASSIUM 4.3 mmol/L (3.5-5.1); TOT PROT 5.3 g/dl (6.4-8.2)
[2019-08-10] MEDS: AMOX TR/POT CLAV 500MG/125MG TABLETS (FP) PO SCH ×2 (08:25→16:30)
--- NOTE | 2019-08-10 09:27 | PN ---
Progress Note, Physician History of Present Illness: stable no new issues - Current Medication List Current Medications: Active Medications Acetaminophen (Tylenol -) 500 mg PO Q6H PRN PRN Reason: Fever Or Pain 1-5 Last Admin: 08/09/19 17:52 Dose: 500 mg Amino Acids (Prosource No Carb Liquid Pkt) 30 ml PO BID [facility] Last Admin: 08/09/19 22:27 Dose: 30 ml Amoxicillin/Clavulanate Potassium (Augmentin - 500mg Tablet) 1 tab PO BID@0800, 1730 [facility] Last Admin: 08/10/19 08:25 Dose: 1 tab Collagenase (Santyl -) 1 applic TP DAILY [facility]; Protocol Last Admin: 08/09/19 10:46 Dose: 1 applic Docusate Sodium (Colace -) 200 mg PO [facility] Last Admin: 08/09/19 22:27 Dose: 200 mg Furosemide (Lasix -) 20 mg PO DAILY [facility] Last Admin: 08/09/19 09:22 Dose: 20 mg Heparin Sodium (Porcine) (Heparin -) 5,000 unit SQ BID [facility] Last Admin: 08/09/19 22:26 Dose: 5,000 unit Mirtazapine (Remeron -) 7.5 mg PO [facility] Last Admin: 08/09/19 22:26 Dose: 7.5 mg Polyethylene Glycol (Miralax (For Daily Use) -) 17 gm PO DAILY PRN PRN Reason: CONSTIPATION Senna (Senna -) 1 tab PO HS [facility] Last Admin: 08/09/19 22:26 Dose: 1 tab - Objective Vital Signs: Vital Signs Temperature 97.5 F L 08/10/19 08:59 Pulse Rate 71 08/10/19 08:59 Respiratory Rate 16 08/10/19 08:59 Blood Pressure 133/77 08/10/19 08:59 O2 Sat by Pulse Oximetry (%) 96 08/07/19 21:00 Constitutional: Yes: No Distress, Calm, Other (failure to thrive) Cardiovascular: Yes: S1, S2 Respiratory: Yes: Regular, CTA Bilaterally Gastrointestinal: Yes: Normal Bowel Sounds, Soft Musculoskeletal: Yes: WNL Extremities: Yes: Other Wound/Incision: Yes: Clean/Dry Neurological: Yes: Alert Psychiatric: Yes: Alert Labs: CBC, BMP 08/10/19 06:30 08/10/19 06:30 INR, PTT INR 1.00 (0.83-1.09) 08/04/19 15:00 Assessment/Plan Problem List - Problems (1) Foot ulcer Code(s): L97.509 - NON-PRESSURE CHRONIC ULCER OTH PRT UNSP FOOT W UNSP SEVERITY (2) Fracture, humerus, proximal Code(s): S42.209A - UNSP FRACTURE OF UPPER END OF UNSP HUMERUS, INIT FOR CLOS FX (3) Protein-calorie malnutrition, severe Code(s): E43 - UNSPECIFIED SEVERE PROTEIN-CALORIE MALNUTRITION (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
[2019-08-10] MEDS: HEPARIN NA (PORCINE) 5,000 UNITS/ML 1ML VIAL SQ SCH ×2 (09:37→23:09)
[2019-08-10] MEDS: AMINO ACIDS/PROTEIN HYDROLYS 30 ML LIQUID.PKT PO SCH ×2 (09:37→23:14)
[2019-08-10] MEDS: FUROSEMIDE 20 MG TABLET (FP) PO SCH (09:37)
[2019-08-10] MEDS: COLLAGENASE CLOSTRIDIUM HIST. 30 GRAMS TUBE TP SCH (09:59)
--- NOTE | 2019-08-10 12:59 | PN ---
Progress Note (short form) - Note Progress Note: Patient seen for fu right ankle and foot. +multiple wounds with improved cellulitis right lower extremity, +dry with necrotic patches Improving cellulitis OM Offload heels. Will follow till dc. Continue Santyl to all wounds.
--- NOTE | 2019-08-10 15:58 | PN ---
Physical Exam: SUBJECTIVE: Patient seen and examined OBJECTIVE: Patient is an 89 year-old female, with a past medical history of situs inversus , severe protein calorie malnutrition, and right hip fracture s/p repair (2019, SUNITA Hanna). 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 She is s/p CTA with runoff. Vital Signs Period Temp Pulse Resp BP Sys/Mena Pulse Ox Last 24 Hr 97.3 F-98.2 F 68-75 16-18 115-154/57-78 99 GENERAL: The patient is awake, alert, cachectic. HEAD: Normal with no signs of trauma. EYES: PERRL, extraocular movements intact, sclera anicteric, conjunctiva clear. No ptosis. ENT: Ears normal, nares patent, oropharynx clear without exudates, dry mucous membranes. NECK: Trachea midline, full range of motion, supple. LUNGS: Breath sounds equal, clear to auscultation bilaterally HEART: Regular rate and rhythm ABDOMEN: Soft, nontender, nondistended, normoactive bowel sounds EXTREMITIES: right arm rests loosely in a sling; large, obvious deformity of humeral head with ecchymosis, not tender. right foot with multiple ulcers. Right foot: multiple, ulcers to right foot including an unsteageable to right heel. NEUROLOGICAL: Normal speech, mostly bedbound PSYCH: Normal mood, normal affect. Laboratory Results - last 24 hr 08/10/19 08/10/19 06:30 06:30 WBC 5.2 RBC 3.49 L Hgb 11.1 Hct 31.8 L MCV 91.1 MCH 31.8 MCHC 34.9 RDW 14.9 Plt Count 221 MPV 8.0 Absolute Neuts (auto) 3.9 Neutrophils % 74.5 Lymphocytes % 11.7 Monocytes % 10.9 H Eosinophils % 1.8 Basophils % 1.1 Nucleated RBC % 0 Sodium 135 L Potassium 4.3 Chloride 102 Carbon Dioxide 28 Anion Gap 6 L BUN 15.2 Creatinine 0.3 L Est GFR (CKD-EPI)AfAm 117.65 Est GFR (CKD-EPI)NonAf 101.51 Random Glucose 75 Calcium 8.2 L Magnesium 2.1 Total Bilirubin 0.3 AST 25 ALT 28 Alkaline Phosphatase 181 H Total Protein 5.3 L Albumin 2.4 L Active Medications Generic Name Dose Route Start Last Admin Trade Name Freq PRN Reason Stop Dose Admin Acetaminophen 500 mg 08/06/19 16:17 08/09/19 17:52 Tylenol - PO 500 mg Q6H PRN Administration Fever Or Pain 1-5 Amino Acids 30 ml 08/03/19 22:00 08/10/19 09:37 Prosource No Carb Liquid Pkt PO 30 ml BID BOWEN Administration Amoxicillin/Clavulanate Potassium 1 tab 08/08/19 17:30 08/10/19 08:25 Augmentin - 500mg Tablet PO 1 tab BID@0800,1730 BOWEN Administration Collagenase 1 applic 08/04/19 17:30 08/10/19 09:59 Santyl - TP 1 applic DAILY BOWEN Administration Protocol Docusate Sodium 200 mg 08/03/19 22:00 08/09/19 22:27 Colace - PO 200 mg HS BOWEN Administration Furosemide 20 mg 08/04/19 10:00 08/10/19 09:37 Lasix - PO 20 mg DAILY BOWEN Administration Heparin Sodium (Porcine) 5,000 unit 08/03/19 22:00 08/10/19 09:37 Heparin - SQ 5,000 unit BID BOWEN Administration Mirtazapine 7.5 mg 08/03/19 22:00 08/09/19 22:26 Remeron - PO 7.5 mg HS BOWEN Administration Polyethylene Glycol 17 gm 08/03/19 20:30 Miralax (For Daily Use) - PO DAILY PRN CONSTIPATION Senna 1 tab 08/03/19 22:00 08/09/19 22:26 Senna - PO 1 tab HS BOWEN Administration ASSESSMENT/PLAN: Problem List - Problems (1) Foot ulcer Assessment/Plan: 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 deep femoral artery is patent PICC placed patient on augmentin per ID, ceftriaxone discontinued Code(s): L97.509 - NON-PRESSURE CHRONIC ULCER OTH PRT UNSP FOOT W UNSP SEVERITY (2) Gallstones Assessment/Plan: gallstones found on imaging, for ultrasound to further evaluate. Code(s): K80.20 - CALCULUS OF GALLBLADDER W/O CHOLECYSTITIS W/O OBSTRUCTION (3) Fracture, humerus, proximal Assessment/Plan: continue with sling, supportive care Code(s): S42.209A - UNSP FRACTURE OF UPPER END OF UNSP HUMERUS, INIT FOR CLOS FX (4) Protein-calorie malnutrition, severe Assessment/Plan: dietary following on supplements patient high risk for further skin breakdown Code(s): E43 - UNSPECIFIED SEVERE PROTEIN-CALORIE MALNUTRITION (5) S/P right hip fracture Code(s): Z87.81 - PERSONAL HISTORY OF (HEALED) TRAUMATIC FRACTURE (6) 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 (7) Prophylactic measure Assessment/Plan: fen tolerating po monitor electrolytes full code Code(s): Z29.9 - ENCOUNTER FOR PROPHYLACTIC MEASURES, UNSPECIFIED Visit type - Emergency Visit Emergency Visit: Yes ED Registration Date: 08/03/19 Care time: The patient presented to the Emergency Department on the above date and was hospitalized for further evaluation of their emergent condition. - New Patient This patient is new to me today: No - Critical Care Critical Care patient: No - Discharge Referral Referred to [facility] Med P.C.: No
[2019-08-10] MEDS: ACETAMINOPHEN 500 MG TABLET (FP) PO PRN (16:03)
[2019-08-10] MEDS: MIRTAZAPINE 15 MG TABLET (FP) PO SCH (23:10)
[2019-08-10] MEDS: SENNOSIDES 8.6MG TABLET (FP) PO SCH (23:11)
[2019-08-10] MEDS: DOCUSATE SODIUM 100 MG CAPSULE (FP) PO SCH (23:11)
[2019-08-11] MEDS ORDERED: INSULIN (LEVEMIR) 100 UNITS/ML UNITS SQ ONE (06:37)
[2019-08-11 07:12] LABS: BASO % 0.7 % (0-2.0); EOS % 1.9 % (0-4.5); HEMATOCRIT 30.7 % (32.4-45.2); HEMOGLOBIN 10.8 GM/dL (10.7-15.3); LYMPH % 9.8 % (8-40); MCH 31.7 pg (25.7-33.7); MCHC 35.3 g/dl (32.0-36.0); MEAN CELL VOLUME 89.9 fl (80-96); MEAN PLT VOLUME 7.7 fl (7.5-11.1); MONO % 8.1 % (3.8-10.2); NEUT % 79.5 % (42.8-82.8); PLATELET COUNT 224 K/MM3 (134-434); RBC 3.42 M/mm3 (3.60-5.2); RDW 14.4 % (11.6-15.6); WHITE BLOOD COUNT 5.9 K/mm3 (4.0-10.0)
[2019-08-11 07:40] LABS: ALBUMIN 2.5 g/dl (3.4-5.0); BILIRUBIN,TOTAL 0.4 mg/dL (0.2-1); CALCIUM 8.3 mg/dL (8.5-10.1); CREATININE 0.3 mg/dL (0.55-1.3); MAGNESIUM 2.2 mg/dL (1.8-2.4); POTASSIUM 3.9 mmol/L (3.5-5.1); TOT PROT 5.5 g/dl (6.4-8.2)
[2019-08-11] MEDS: HEPARIN NA (PORCINE) 5,000 UNITS/ML 1ML VIAL SQ SCH ×2 (10:06→21:50)
[2019-08-11] MEDS: AMINO ACIDS/PROTEIN HYDROLYS 30 ML LIQUID.PKT PO SCH ×2 (10:06→21:50)
[2019-08-11] MEDS: AMOX TR/POT CLAV 500MG/125MG TABLETS (FP) PO SCH ×2 (10:06→16:29)
[2019-08-11] MEDS: FUROSEMIDE 20 MG TABLET (FP) PO SCH (10:07)
[2019-08-11] MEDS: COLLAGENASE CLOSTRIDIUM HIST. 30 GRAMS TUBE TP SCH (10:14)
--- NOTE | 2019-08-11 12:23 | PN ---
Progress Note, Physician History of Present Illness: stable no new issues - Current Medication List Current Medications: Active Medications Acetaminophen (Tylenol -) 500 mg PO Q6H PRN PRN Reason: Fever Or Pain 1-5 Last Admin: 08/10/19 16:03 Dose: 500 mg Amino Acids (Prosource No Carb Liquid Pkt) 30 ml PO BID [facility] Last Admin: 08/11/19 10:06 Dose: 30 ml Amoxicillin/Clavulanate Potassium (Augmentin - 500mg Tablet) 1 tab PO BID@0800, 1730 [facility] Last Admin: 08/11/19 10:06 Dose: 1 tab Collagenase (Santyl -) 1 applic TP DAILY [facility]; Protocol Last Admin: 08/11/19 10:14 Dose: 1 applic Docusate Sodium (Colace -) 200 mg PO [facility] Last Admin: 08/10/19 23:11 Dose: 200 mg Furosemide (Lasix -) 20 mg PO DAILY [facility] Last Admin: 08/11/19 10:07 Dose: 20 mg Heparin Sodium (Porcine) (Heparin -) 5,000 unit SQ BID [facility] Last Admin: 08/11/19 10:06 Dose: 5,000 unit Mirtazapine (Remeron -) 7.5 mg PO [facility] Last Admin: 08/10/19 23:10 Dose: 7.5 mg Polyethylene Glycol (Miralax (For Daily Use) -) 17 gm PO DAILY PRN PRN Reason: CONSTIPATION Senna (Senna -) 1 tab PO HS [facility] Last Admin: 08/10/19 23:11 Dose: 1 tab - Objective Vital Signs: Vital Signs Temperature 97.6 F 08/11/19 08:46 Pulse Rate 73 08/11/19 08:46 Respiratory Rate 16 08/11/19 08:46 Blood Pressure 121/65 08/11/19 08:46 O2 Sat by Pulse Oximetry (%) 100 08/10/19 21:00 Constitutional: Yes: No Distress, Calm, Other (failure to thrive) Cardiovascular: Yes: S1, S2 Respiratory: Yes: Regular, CTA Bilaterally Gastrointestinal: Yes: Normal Bowel Sounds, Soft Musculoskeletal: Yes: WNL Extremities: Yes: Other Neurological: Yes: Alert, Oriented Labs: CBC, BMP 08/11/19 06:40 08/11/19 06:40 INR, PTT INR 1.00 (0.83-1.09) 08/04/19 15:00 Assessment/Plan Problem List - Problems (1) Foot ulcer Code(s): L97.509 - NON-PRESSURE CHRONIC ULCER OTH PRT UNSP FOOT W UNSP SEVERITY (2) Fracture, humerus, proximal Code(s): S42.209A - UNSP FRACTURE OF UPPER END OF UNSP HUMERUS, INIT FOR CLOS FX (3) Protein-calorie malnutrition, severe Code(s): E43 - UNSPECIFIED SEVERE PROTEIN-CALORIE MALNUTRITION (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
--- NOTE | 2019-08-11 13:27 | PN ---
Progress Note (short form) - Note Progress Note: VASCULAR SURGERY -CTA w/ LE runoff reviewed w/ Dr. Nayak. -A PICC line was placed yesterday. -Given her current medical condition (deconditioned, malnutrition, cachectic) we feel that it's best to try conservative approach to her OM. -ID for antibiotics -No further surgical input needed Above discussed with my attending and agrees. On behalf of Fr. Nayak, thank you for the opportunity to participate in your patient's care. Problem List - Problems (1) Foot ulcer Code(s): L97.509 - NON-PRESSURE CHRONIC ULCER OTH PRT UNSP FOOT W UNSP SEVERITY (2) Protein-calorie malnutrition, severe Code(s): E43 - UNSPECIFIED SEVERE PROTEIN-CALORIE MALNUTRITION
--- NOTE | 2019-08-11 14:12 | PN ---
Physical Exam: SUBJECTIVE: Patient seen and examined, she denies abdominal pain, + mild right foot pain. OBJECTIVE: Patient is an 89 year-old female, with a past medical history of situs inversus , severe protein calorie malnutrition, and right hip fracture s/p repair (2019, SUNITA Hanna). 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 She is s/p CTA with runoff. abdominal u/s pending. Vital Signs Period Temp Pulse Resp BP Sys/Mena Pulse Ox Last 24 Hr 97.3 F-98.2 F 69-85 16-18 110-147/64-78 100 GENERAL: The patient is awake, alert, cachectic. HEAD: Normal with no signs of trauma. EYES: PERRL, extraocular movements intact, sclera anicteric, conjunctiva clear. No ptosis. ENT: Ears normal, nares patent, oropharynx clear without exudates, dry mucous membranes. NECK: Trachea midline, full range of motion, supple. LUNGS: Breath sounds equal, clear to auscultation bilaterally HEART: Regular rate and rhythm ABDOMEN: Soft, nontender, nondistended, normoactive bowel sounds EXTREMITIES: right arm rests loosely in a sling; large, obvious deformity of humeral head with ecchymosis, not tender. right foot with multiple ulcers. Right foot: multiple, ulcers to right foot including an unsteageable to right heel. NEUROLOGICAL: Normal speech, mostly bedbound PSYCH: Normal mood, normal affect. Laboratory Results - last 24 hr 08/11/19 08/11/19 06:40 06:40 WBC 5.9 RBC 3.42 L Hgb 10.8 Hct 30.7 L MCV 89.9 MCH 31.7 MCHC 35.3 RDW 14.4 Plt Count 224 MPV 7.7 Absolute Neuts (auto) 4.7 Neutrophils % 79.5 Lymphocytes % 9.8 Monocytes % 8.1 Eosinophils % 1.9 Basophils % 0.7 Nucleated RBC % 0 Sodium 134 L Potassium 3.9 Chloride 100 Carbon Dioxide 28 Anion Gap 6 L BUN 15.0 Creatinine 0.3 L Est GFR (CKD-EPI)AfAm 117.65 Est GFR (CKD-EPI)NonAf 101.51 Random Glucose 92 Calcium 8.3 L Magnesium 2.2 Total Bilirubin 0.4 AST 26 ALT 29 Alkaline Phosphatase 188 H Total Protein 5.5 L Albumin 2.5 L Active Medications Generic Name Dose Route Start Last Admin Trade Name Jhonatanq PRN Reason Stop Dose Admin Acetaminophen 500 mg 08/06/19 16:17 08/10/19 16:03 Tylenol - PO 500 mg Q6H PRN Administration Fever Or Pain 1-5 Amino Acids 30 ml 08/03/19 22:00 08/11/19 10:06 Prosource No Carb Liquid Pkt PO 30 ml BID BOWEN Administration Amoxicillin/Clavulanate Potassium 1 tab 08/08/19 17:30 08/11/19 10:06 Augmentin - 500mg Tablet PO 1 tab BID@0800,1730 BOWEN Administration Collagenase 1 applic 08/04/19 17:30 08/11/19 10:14 Santyl - TP 1 applic DAILY BOWEN Administration Protocol Docusate Sodium 200 mg 08/03/19 22:00 08/10/19 23:11 Colace - PO 200 mg HS BOWEN Administration Furosemide 20 mg 08/04/19 10:00 08/11/19 10:07 Lasix - PO 20 mg DAILY BOWEN Administration Heparin Sodium (Porcine) 5,000 unit 08/03/19 22:00 08/11/19 10:06 Heparin - SQ 5,000 unit BID BOWEN Administration Mirtazapine 7.5 mg 08/03/19 22:00 08/10/19 23:10 Remeron - PO 7.5 mg HS BOWEN Administration Polyethylene Glycol 17 gm 08/03/19 20:30 Miralax (For Daily Use) - PO DAILY PRN CONSTIPATION Senna 1 tab 08/03/19 22:00 08/10/19 23:11 Senna - PO 1 tab HS BOWEN Administration ASSESSMENT/PLAN: Problem List - Problems (1) Foot ulcer Assessment/Plan: 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 deep femoral artery is patent PICC placed patient on augmentin per ID, ceftriaxone discontinued Code(s): L97.509 - NON-PRESSURE CHRONIC ULCER OTH PRT UNSP FOOT W UNSP SEVERITY (2) Gallstones Assessment/Plan: gallstones found on imaging, ultrasound pending Code(s): K80.20 - CALCULUS OF GALLBLADDER W/O CHOLECYSTITIS W/O OBSTRUCTION (3) Fracture, humerus, proximal Assessment/Plan: continue with sling, supportive care Code(s): S42.209A - UNSP FRACTURE OF UPPER END OF UNSP HUMERUS, INIT FOR CLOS FX (4) Protein-calorie malnutrition, severe Assessment/Plan: dietary following on supplements patient high risk for further skin breakdown Code(s): E43 - UNSPECIFIED SEVERE PROTEIN-CALORIE MALNUTRITION (5) S/P right hip fracture Code(s): Z87.81 - PERSONAL HISTORY OF (HEALED) TRAUMATIC FRACTURE (6) 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 (7) Prophylactic measure Assessment/Plan: fen tolerating po monitor electrolytes full code Code(s): Z29.9 - ENCOUNTER FOR PROPHYLACTIC MEASURES, UNSPECIFIED Visit type - Emergency Visit Emergency Visit: Yes ED Registration Date: 08/03/19 Care time: The patient presented to the Emergency Department on the above date and was hospitalized for further evaluation of their emergent condition. - New Patient This patient is new to me today: No - Critical Care Critical Care patient: No - Discharge Referral Referred to [facility] Med P.C.: No
[2019-08-11] MEDS: DOCUSATE SODIUM 100 MG CAPSULE (FP) PO SCH (21:49)
[2019-08-11] MEDS: MIRTAZAPINE 15 MG TABLET (FP) PO SCH (21:49)
[2019-08-11] MEDS: SENNOSIDES 8.6MG TABLET (FP) PO SCH (21:50)
[2019-08-12 07:51] LABS: BASO % 0.7 % (0-2.0); HEMATOCRIT 32.5 % (32.4-45.2); HEMOGLOBIN 11.4 GM/dL (10.7-15.3); LYMPH % 11.3 % (8-40); MCH 31.9 pg (25.7-33.7); MCHC 34.9 g/dl (32.0-36.0); MEAN CELL VOLUME 91.3 fl (80-96); MONO % 8.5 % (3.8-10.2); NEUT % 78.5 % (42.8-82.8); PLATELET COUNT 245 K/MM3 (134-434); RBC 3.56 M/mm3 (3.60-5.2); RDW 14.5 % (11.6-15.6); WHITE BLOOD COUNT 5.9 K/mm3 (4.0-10.0)
[2019-08-12 08:28] LABS: ALBUMIN 2.7 g/dl (3.4-5.0); BILIRUBIN,TOTAL 0.2 mg/dL (0.2-1); BLOOD UREA NITROGEN 15.9 mg/dL (7-18); CALCIUM 8.8 mg/dL (8.5-10.1); CREATININE 0.3 mg/dL (0.55-1.3); MAGNESIUM 2.3 mg/dL (1.8-2.4); POTASSIUM 4.3 mmol/L (3.5-5.1); TOT PROT 5.7 g/dl (6.4-8.2)
[2019-08-12] MEDS ORDERED: PT OWN MED DRAWER 7, Y5N ONE ×2 (09:05→22:10)
[2019-08-12] MEDS: AMOX TR/POT CLAV 500MG/125MG TABLETS (FP) PO SCH ×2 (09:18→18:26)
[2019-08-12] MEDS: AMINO ACIDS/PROTEIN HYDROLYS 30 ML LIQUID.PKT PO SCH ×2 (09:18→22:19)
[2019-08-12] MEDS: FUROSEMIDE 20 MG TABLET (FP) PO SCH (09:18)
[2019-08-12] MEDS: HEPARIN NA (PORCINE) 5,000 UNITS/ML 1ML VIAL SQ SCH ×2 (09:18→22:19)
--- NOTE | 2019-08-12 14:18 | PN ---
Progress Note (short form) - Note Progress Note: Patient seen for fu right ankle and foot. +multiple wounds with improved cellulitis right lower extremity, +dry with necrotic patches Improving cellulitis OM Offload heels. Read and appreciated vascular pa note. Will follow till dc. Continue Santyl to all wounds.
--- NOTE | 2019-08-12 14:38 | PN ---
Physical Exam: SUBJECTIVE: Patient comfortable in bed, no abdominal pain. Pain of right foot intermittently. OBJECTIVE: Patient is an 89 year-old female, with a past medical history of situs inversus , severe protein calorie malnutrition, and right hip fracture s/p repair (2019, SUNITA Hanna). 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 She is s/p CTA with runoff. Vital Signs Period Temp Pulse Resp BP Sys/Mena Pulse Ox Last 24 Hr 97.5 F-98.2 F 76-82 18-20 114-140/54-74 95 GENERAL: The patient is awake, alert, cachectic. HEAD: Normal with no signs of trauma. EYES: PERRL, extraocular movements intact, sclera anicteric, conjunctiva clear. No ptosis. ENT: Ears normal, nares patent, oropharynx clear without exudates, dry mucous membranes. NECK: Trachea midline, full range of motion, supple. LUNGS: Breath sounds equal, clear to auscultation bilaterally HEART: Regular rate and rhythm ABDOMEN: Soft, nontender, nondistended, normoactive bowel sounds EXTREMITIES: right arm rests loosely in a sling; large, obvious deformity of humeral head with ecchymosis, not tender. right foot with multiple ulcers. Right foot: multiple, ulcers to right foot including an unsteageable to right heel. NEUROLOGICAL: Normal speech, mostly bedbound PSYCH: Normal mood, normal affect. Laboratory Results - last 24 hr 08/12/19 08/12/19 06:30 06:30 WBC 5.9 RBC 3.56 L Hgb 11.4 Hct 32.5 MCV 91.3 MCH 31.9 MCHC 34.9 RDW 14.5 Plt Count 245 MPV 8.0 Absolute Neuts (auto) 4.6 Neutrophils % 78.5 Lymphocytes % 11.3 Monocytes % 8.5 Eosinophils % 1.0 Basophils % 0.7 Nucleated RBC % 0 Sodium 133 L Potassium 4.3 Chloride 98 Carbon Dioxide 31 Anion Gap 5 L BUN 15.9 Creatinine 0.3 L Est GFR (CKD-EPI)AfAm 117.65 Est GFR (CKD-EPI)NonAf 101.51 Random Glucose 78 Calcium 8.8 Magnesium 2.3 Total Bilirubin 0.2 AST 24 ALT 30 Alkaline Phosphatase 192 H Total Protein 5.7 L Albumin 2.7 L Active Medications Generic Name Dose Route Start Last Admin Trade Name Freq PRN Reason Stop Dose Admin Acetaminophen 500 mg 08/06/19 16:17 08/10/19 16:03 Tylenol - PO 500 mg Q6H PRN Administration Fever Or Pain 1-5 Amino Acids 30 ml 08/03/19 22:00 08/12/19 09:18 Prosource No Carb Liquid Pkt PO Not Given BID BOWEN Amoxicillin/Clavulanate Potassium 1 tab 08/08/19 17:30 08/12/19 09:18 Augmentin - 500mg Tablet PO 1 tab BID@0800,1730 BOWEN Administration Ascorbic Acid 250 mg 08/12/19 22:00 Vitamin C - PO BID BOWEN Collagenase 1 applic 08/04/19 17:30 08/11/19 10:14 Santyl - TP 1 applic DAILY BOWEN Administration Protocol Docusate Sodium 200 mg 08/03/19 22:00 08/11/19 21:49 Colace - PO 200 mg HS BOWEN Administration Furosemide 20 mg 08/04/19 10:00 08/12/19 09:18 Lasix - PO 20 mg DAILY BOWEN Administration Heparin Sodium (Porcine) 5,000 unit 08/03/19 22:00 08/12/19 09:18 Heparin - SQ 5,000 unit BID BOWEN Administration Mirtazapine 7.5 mg 08/03/19 22:00 08/11/19 21:49 Remeron - PO 7.5 mg HS BOWEN Administration Multivitamins/Minerals/Vitamin C 1 tab 08/13/19 10:00 Tab-A-Vit - PO DAILY BOWEN Polyethylene Glycol 17 gm 08/03/19 20:30 Miralax (For Daily Use) - PO DAILY PRN CONSTIPATION Senna 1 tab 08/03/19 22:00 08/11/19 21:50 Senna - PO 1 tab HS BOWEN Administration ASSESSMENT/PLAN: Problem List - Problems (1) Foot ulcer Assessment/Plan: 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 deep femoral artery is patent PICC placed, but patient will not require [facility]p antibiotics, therefore will remove picc prior to d/c patient on augmentin per ID for a total of 7 days, ceftriaxone discontinued Code(s): L97.509 - NON-PRESSURE CHRONIC ULCER OTH PRT UNSP FOOT W UNSP SEVERITY (2) Gallstones Assessment/Plan: gallstones found on imaging of CTA abdominal ultrasound show limited view of the gallbladder that appears contracted with stones and without gross wall thickening or pericholeystitc free fluid. surgery consulted for recommendations patient with poor appetite and severe cachexia. but no vomited, nausea reported. no abdominal pain reported Code(s): K80.20 - CALCULUS OF GALLBLADDER W/O CHOLECYSTITIS W/O OBSTRUCTION (3) Fracture, humerus, proximal Assessment/Plan: continue with sling, supportive care Code(s): S42.209A - UNSP FRACTURE OF UPPER END OF UNSP HUMERUS, INIT FOR CLOS FX (4) Protein-calorie malnutrition, severe Assessment/Plan: dietary following on supplements patient high risk for further skin breakdown Code(s): E43 - UNSPECIFIED SEVERE PROTEIN-CALORIE MALNUTRITION (5) S/P right hip fracture Code(s): Z87.81 - PERSONAL HISTORY OF (HEALED) TRAUMATIC FRACTURE (6) 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 (7) Prophylactic measure Assessment/Plan: fen tolerating po monitor electrolytes full code Code(s): Z29.9 - ENCOUNTER FOR PROPHYLACTIC MEASURES, UNSPECIFIED Visit type - Emergency Visit Emergency Visit: Yes ED Registration Date: 08/03/19 Care time: The patient presented to the Emergency Department on the above date and was hospitalized for further evaluation of their emergent condition. - New Patient This patient is new to me today: No - Critical Care Critical Care patient: No - Discharge Referral Referred to [facility] Med P.C.: No
--- NOTE | 2019-08-12 16:33 | CONSULT ---
Consult Consult Specialty:: General Surgery Referred by:: Andre Cristina NP Reason for Consultation:: incidental gallstones - History of Present Illness Chief Complaint: none from patient History of Present Illness: 89yo frail, elderly F with situs inversus, cachexia, h/o right hip fracture repair, recent right humerus fracture (in sling), admitted from wound clinic through ER for concern regarding multiple right foot pressure ulcers. She had CTA done in relation to her vascular status and the foot ulcers, which showed incidental probable gallstone with some ascites and pericholecystic fluid. US was then done showing contracted gallbladder with suggestion of stones, but no signs cholecystitis. There is no ductal dilation. Surgery was asked to assess. She is seen and examined in bed. She had removed her right arm from her sling, and her heel protectors from both feet bilaterally. She stated the sling was very uncomfortable. She is somewhat confused, but able to converse and answer questions. She denies abdominal pain, N/V, diarrhea, constipation, or problems eating, other than "I should eat more." She couldn't say how long she has been as thin as she is. She took some Enlive supplement from the bottle with a straw , but indicated she may need some help with eating/drinking more. She admits to some pain in her right foot where the ulcers are, and related to her right arm/ shoulder fracture. She denies previous abdominal surgery, but when asked about scars in the inguinal region, isn't sure if she had previous hernia repair - she said it was possible. 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 ) Gastrointestinal: Yes: Other (cachexia) Reproductive: Yes: Postmenopausal Musculoskeletal: Yes: Osteoarthritis Additional Medical History: situs inversus, unclear if other medical problems - pt cannot offer good history, unclear why she is on lasix at home - Past Surgical History Additional Surgical History: right hip fracture repair, possible bilateral inguinal hernia repairs? 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 Home Medications - Allergies Allergies/Adverse Reactions: Allergies Allergy/AdvReac Type Severity Reaction Status Date / Time No Known Allergies Allergy Verified 08/03/19 10:15 - Home Medications Home Medications: Ambulatory Orders Acetaminophen 650 mg PO Q8H 08/03/19 Amino Acids/Protein Hydrolys [Pro-Stat Max Liquid] 30 ml PO BID 08/03/19 Docusate Sodium [Colace] 200 mg PO HS 08/03/19 Furosemide [Lasix -] 20 mg PO DAILY 08/03/19 Mirtazapine 7.5 mg PO ASDIR 08/03/19 Multivitamin [Multiple Vitamins] 1 each PO DAILY 08/03/19 Neomycin/Bacitracin/Polymyxinb [Triple Antibiotic Ointment] 1 each TP WEEKLY Oxycodone HCl 5 mg PO Q4H PRN 08/03/19 Polyethylene Glycol 3350 17 gm PO DAILY PRN 08/03/19 Sennosides [Senna] 17.2 mg PO HS 08/03/19 Silver Sulfadiazine [Silvadene] 1 applic TP BID 08/03/19 Family Medical History Family History: Unable to Obtain (noncontributory - pt cannot offer) Review of Systems Unable to obtain ROS, reason: ltd - pt poor hxn - Review of Systems Constitutional: denies: Chills, Fever HENT: reports: Difficult Swallowing ("why isn't my swallowing as good as it used to be?"), Other (dentures, recent tooth extractions, was planning implants? ). denies: Throat Pain Cardiovascular: denies: Chest Pain, Palpitations Respiratory: denies: Cough, SOB Gastrointestinal: denies: Abdominal Pain, Constipation, Diarrhea, Nausea, Vomiting Genitourinary: denies: Burning, Dysuria Musculoskeletal: reports: Extremity Pain (right foot lesions), Joint Pain Integumentary: reports: Wound (right foot ulcers). denies: Change in Color, Rash Physical Exam Vital Signs: Vital Signs Temperature 97.8 F 08/12/19 13:56 Pulse Rate 78 08/12/19 13:56 Respiratory Rate 08/12/19 13:56 Blood Pressure 140/68 08/12/19 13:56 O2 Sat by Pulse Oximetry (%) 95 08/12/19 09:00 Constitutional: Yes: No Distress, Calm, Cachectic Eyes: Yes: Conjunctiva Clear, EOM Intact HENT: Yes: Atraumatic, Normocephalic Neck: Yes: Supple, Trachea Midline Cardiovascular: Yes: Regular Rate and Rhythm (on right side) Respiratory: Yes: Regular, CTA Bilaterally Gastrointestinal: Yes: Normal Bowel Sounds, Soft, Other (well-healed inguinal scars). No: Tenderness, Tenderness, Epigastrium ...Rectal Exam: Yes: Deferred Renal/: No: CVA Tenderness - Left, CVA Tenderness - Right Musculoskeletal: Yes: Joint Stiffness (right shoulder (see below)), Joint Swelling (R shoulder) Extremities: Yes: Deformity (right shoulder - enlarged, deformed; sling RUE - pt had taken off/arm out). No: Cool, Cyanosis Edema: No Peripheral Pulses WNL: No (difficult to appreciate right DP) Integumentary: Yes: Pressure Ulcer (x3 right foot - clean, dry, do not appear infected). No: Jaundice, Rash Wound/Incision: Yes: Open to air Neurological: Yes: Alert, Confusion (somewhat) Psychiatric: Yes: Alert. No: Agitated Labs: CBC, BMP 08/12/19 06:30 08/12/19 06:30 CMP Sodium 133 mmol/L (136-145) L 08/12/19 06:30 Potassium 4.3 mmol/L (3.5-5.1) 08/12/19 06:30 Chloride 98 mmol/L (98-107) 08/12/19 06:30 Carbon Dioxide 31 mmol/L (21-32) 08/12/19 06:30 Anion Gap 5 MMOL/L (8-16) L 08/12/19 06:30 BUN 15.9 mg/dL (7-18) 08/12/19 06:30 Creatinine 0.3 mg/dL (0.55-1.3) L 08/12/19 06:30 Est GFR (CKD-EPI)AfAm 117.65 08/12/19 06:30 Est GFR (CKD-EPI)NonAf 101.51 08/12/19 06:30 Random Glucose 78 mg/dL (74-106) 08/12/19 06:30 Calcium 8.8 mg/dL (8.5-10.1) 08/12/19 06:30 Phosphorus 3.4 mg/dL (2.5-4.9) 08/03/19 13:19 Magnesium 2.3 mg/dL (1.8-2.4) 08/12/19 06:30 Total Bilirubin 0.2 mg/dL (0.2-1) 08/12/19 06:30 AST 24 U/L (15-37) 08/12/19 06:30 ALT 30 U/L (13-61) 08/12/19 06:30 Alkaline Phosphatase 192 U/L (45-117) H 08/12/19 06:30 Total Protein 5.7 g/dl (6.4-8.2) L 08/12/19 06:30 Albumin 2.7 g/dl (3.4-5.0) L 08/12/19 06:30 INR, PTT INR 1.00 (0.83-1.09) 08/04/19 15:00 alk phos elevated 180s-200s Imaging - Results Cat Scan: Image Reviewed (situs inversus, CTA done; no acute GI findings) Ultrasound: Report Reviewed (contracted gallbladder with possible suggestion of stones, no ductal dilation, no signs cholecystitis; situs inversus), Image Reviewed Problem List - Problems (1) Calculus of gallbladder without cholangitis or cholecystitis Assessment/Plan: incidentally noted possible gallstones in contracted gallbladder, asymptomatic without signs of biliary obstruction in elderly, frail, cachectic patient with situs inversus and other significant comorbidities, including foot ulcers and humeral fracture surgical intervention not indicated, though she would be a poor surgical candidate in her current clinical state continue diet as tolerated with supplementation as indicated will sign off Thank you for the opportunity to participate in the care of this patient. Code(s): K80.20 - CALCULUS OF GALLBLADDER W/O CHOLECYSTITIS W/O OBSTRUCTION (2) Protein-calorie malnutrition, severe Code(s): E43 - UNSPECIFIED SEVERE PROTEIN-CALORIE MALNUTRITION (3) 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 (4) Decubitus ulcer of right foot, unstageable Code(s): L89.890 - PRESSURE ULCER OF OTHER SITE, UNSTAGEABLE (5) Closed fracture of right humerus Code(s): S42.301A - UNSP FRACTURE OF SHAFT OF HUMERUS, RIGHT ARM, INIT Qualifiers: Encounter type: initial encounter Humerus Location: proximal Fracture morphology: other fracture Fracture alignment: displaced Qualified Code(s): S42.291A - Other displaced fracture of upper end of right humerus, initial encounter for closed fracture
--- NOTE | 2019-08-12 17:32 | PN ---
Progress Note, Physician History of Present Illness: Pt without new complaints. Remains afebrile. Rt foot pain. - Current Medication List Current Medications: Active Medications Acetaminophen (Tylenol -) 500 mg PO Q6H PRN PRN Reason: Fever Or Pain 1-5 Last Admin: 08/10/19 16:03 Dose: 500 mg Amino Acids (Prosource No Carb Liquid Pkt) 30 ml PO BID [facility] Last Admin: 08/12/19 09:18 Dose: Not Given Amoxicillin/Clavulanate Potassium (Augmentin - 500mg Tablet) 1 tab PO BID@0800, 1730 [facility] Last Admin: 08/12/19 09:18 Dose: 1 tab Ascorbic Acid (Vitamin C -) 250 mg PO BID [facility] Collagenase (Santyl -) 1 applic TP DAILY [facility]; Protocol Last Admin: 08/11/19 10:14 Dose: 1 applic Docusate Sodium (Colace -) 200 mg PO [facility] Last Admin: 08/11/19 21:49 Dose: 200 mg Furosemide (Lasix -) 20 mg PO DAILY [facility] Last Admin: 08/12/19 09:18 Dose: 20 mg Heparin Sodium (Porcine) (Heparin -) 5,000 unit SQ BID [facility] Last Admin: 08/12/19 09:18 Dose: 5,000 unit Mirtazapine (Remeron -) 7.5 mg PO [facility] Last Admin: 08/11/19 21:49 Dose: 7.5 mg Multivitamins/Minerals/Vitamin C (Tab-A-Vit -) 1 tab PO DAILY [facility] Polyethylene Glycol (Miralax (For Daily Use) -) 17 gm PO DAILY PRN PRN Reason: CONSTIPATION Senna (Senna -) 1 tab PO [facility] Last Admin: 08/11/19 21:50 Dose: 1 tab - Objective Vital Signs: Vital Signs Temperature 97.8 F 08/12/19 13:56 Pulse Rate 78 08/12/19 13:56 Respiratory Rate 20 08/12/19 13:56 Blood Pressure 140/68 08/12/19 13:56 O2 Sat by Pulse Oximetry (%) 95 08/12/19 09:00 Constitutional: Yes: No Distress, Calm Cardiovascular: Yes: Regular Rate and Rhythm Respiratory: Yes: Regular Gastrointestinal: Yes: Normal Bowel Sounds, Soft Genitourinary: Yes: WNL Wound/Incision: Yes: Other (Rt foot ulcers/tenderness, less erythema, no edema) Neurological: Yes: Alert Labs: CBC, BMP 08/12/19 06:30 08/12/19 06:30 INR, PTT INR 1.00 (0.83-1.09) 08/04/19 15:00 Microbiology 08/03/19 13:19 Blood - Peripheral Venous Blood Culture - Final NO GROWTH AFTER 5 DAYS INCUBATION 08/03/19 13:19 Blood - Peripheral Venous Blood Culture - Final NO GROWTH AFTER 5 DAYS INCUBATION Problem List - Problems (1) Foot ulcer Code(s): L97.509 - NON-PRESSURE CHRONIC ULCER OTH PRT UNSP FOOT W UNSP SEVERITY (2) Fracture, humerus, proximal Code(s): S42.209A - UNSP FRACTURE OF UPPER END OF UNSP HUMERUS, INIT FOR CLOS FX (3) Protein-calorie malnutrition, severe Code(s): E43 - UNSPECIFIED SEVERE PROTEIN-CALORIE MALNUTRITION (4) 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 Assessment/Plan Rt foot ulcers/ cellulitis Rt heel eschar/Vascular insufficiency Humeral Fracture Severe Malnutrition Situs inversus -- continue Augmentin x 2 more days -- CTA/runoff done -- Continue wound care/off-loading pt is afebrile, without distress
[2019-08-12] MEDS: COLLAGENASE CLOSTRIDIUM HIST. 30 GRAMS TUBE TP SCH (18:27)
[2019-08-12] MEDS: SENNOSIDES 8.6MG TABLET (FP) PO SCH (22:19)
[2019-08-12] MEDS: DOCUSATE SODIUM 100 MG CAPSULE (FP) PO SCH (22:20)
[2019-08-12] MEDS: MIRTAZAPINE 15 MG TABLET (FP) PO SCH (22:20)
[2019-08-12] MEDS: ASCORBIC ACID 250 MG TABLET (FP) PO SCH (22:20)
[2019-08-13] MEDS: AMOX TR/POT CLAV 500MG/125MG TABLETS (FP) PO SCH ×2 (09:02→17:43)
[2019-08-13] MEDS ORDERED: PT OWN MED DRAWER 7, Y5N ONE (10:29)
[2019-08-13] MEDS: MULTIVITAMINS (DAILY MVI) TABLET (FP) PO SCH (10:31)
[2019-08-13] MEDS: AMINO ACIDS/PROTEIN HYDROLYS 30 ML LIQUID.PKT PO SCH ×2 (10:31→21:09)
[2019-08-13] MEDS: HEPARIN NA (PORCINE) 5,000 UNITS/ML 1ML VIAL SQ SCH ×2 (10:31→21:09)
[2019-08-13] MEDS: FUROSEMIDE 20 MG TABLET (FP) PO SCH (10:32)
[2019-08-13] MEDS: ACETAMINOPHEN 500 MG TABLET (FP) PO PRN ×2 (10:32→21:09)
[2019-08-13] MEDS: ASCORBIC ACID 250 MG TABLET (FP) PO SCH ×2 (10:33→21:10)
[2019-08-13 11:22] LABS: BASO % 0.7 % (0-2.0); EOS % 0.5 % (0-4.5); HEMATOCRIT 31.5 % (32.4-45.2); HEMOGLOBIN 10.9 GM/dL (10.7-15.3); LYMPH % 9.2 % (8-40); MCH 31.7 pg (25.7-33.7); MCHC 34.5 g/dl (32.0-36.0); MEAN CELL VOLUME 91.9 fl (80-96); MEAN PLT VOLUME 8.2 fl (7.5-11.1); MONO % 10.4 % (3.8-10.2); NEUT % 79.2 % (42.8-82.8); PLATELET COUNT 234 K/MM3 (134-434); RBC 3.43 M/mm3 (3.60-5.2); RDW 14.6 % (11.6-15.6); WHITE BLOOD COUNT 7.7 K/mm3 (4.0-10.0)
[2019-08-13 11:59] LABS: ALBUMIN 2.6 g/dl (3.4-5.0); BILIRUBIN,TOTAL 0.4 mg/dL (0.2-1); BLOOD UREA NITROGEN 15.5 mg/dL (7-18); CALCIUM 8.6 mg/dL (8.5-10.1); CREATININE 0.3 mg/dL (0.55-1.3); POTASSIUM 4.1 mmol/L (3.5-5.1); TOT PROT 5.6 g/dl (6.4-8.2)
[2019-08-13] MEDS: COLLAGENASE CLOSTRIDIUM HIST. 30 GRAMS TUBE TP SCH (15:01)
--- NOTE | 2019-08-13 15:58 | PN ---
Physical Exam: SUBJECTIVE: Patient seen and examined. denies any abdominal pain, nausea. appears comfortable in bed drinking ensure. OBJECTIVE: Patient is an 89 year-old female, with a past medical history of situs inversus , severe protein calorie malnutrition, and right hip fracture s/p repair (2019, SUNITA Hanna). 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 She is s/p CTA with runoff. discharge planning Vital Signs Period Temp Pulse Resp BP Sys/Mena Pulse Ox Last 24 Hr 97.6 F-97.9 F 78-92 19-20 116-142/68-79 96 GENERAL: The patient is awake, alert, cachectic. HEAD: Normal with no signs of trauma. EYES: PERRL, extraocular movements intact, sclera anicteric, conjunctiva clear. No ptosis. ENT: Ears normal, nares patent, oropharynx clear without exudates, dry mucous membranes. NECK: Trachea midline, full range of motion, supple. LUNGS: Breath sounds equal, clear to auscultation bilaterally HEART: Regular rate and rhythm ABDOMEN: Soft, nontender, nondistended, normoactive bowel sounds EXTREMITIES: right arm rests loosely in a sling; large, obvious deformity of humeral head with ecchymosis, not tender. right foot with multiple ulcers. Right foot: multiple, ulcers to right foot including an unsteageable to right heel. NEUROLOGICAL: Normal speech, mostly bedbound PSYCH: Normal mood, normal affect. Laboratory Results - last 24 hr 08/13/19 08/13/19 11:07 11:07 WBC 7.7 RBC 3.43 L Hgb 10.9 Hct 31.5 L MCV 91.9 MCH 31.7 MCHC 34.5 RDW 14.6 Plt Count 234 MPV 8.2 Absolute Neuts (auto) 6.1 Neutrophils % 79.2 Lymphocytes % 9.2 Monocytes % 10.4 H Eosinophils % 0.5 Basophils % 0.7 Nucleated RBC % 0 Sodium 131 L Potassium 4.1 Chloride 96 L Carbon Dioxide 28 Anion Gap 7 L BUN 15.5 Creatinine 0.3 L Est GFR (CKD-EPI)AfAm 117.65 Est GFR (CKD-EPI)NonAf 101.51 Random Glucose 98 Calcium 8.6 Magnesium 2.0 Total Bilirubin 0.4 AST 23 ALT 28 Alkaline Phosphatase 182 H Total Protein 5.6 L Albumin 2.6 L Active Medications Generic Name Dose Route Start Last Admin Trade Name Freq PRN Reason Stop Dose Admin Acetaminophen 500 mg 08/06/19 16:17 08/13/19 10:32 Tylenol - PO 500 mg Q6H PRN Administration Fever Or Pain 1-5 Amino Acids 30 ml 08/03/19 22:00 08/13/19 10:31 Prosource No Carb Liquid Pkt PO 30 ml BID BOWEN Administration Amoxicillin/Clavulanate Potassium 1 tab 08/08/19 17:30 08/13/19 09:02 Augmentin - 500mg Tablet PO 1 tab BID@0800,1730 BOWEN Administration Ascorbic Acid 250 mg 08/12/19 22:00 08/13/19 10:33 Vitamin C - PO 250 mg BID BOWEN Administration Collagenase 1 applic 08/04/19 17:30 08/13/19 15:01 Santyl - TP 1 applic DAILY BOWEN Administration Protocol Docusate Sodium 200 mg 08/03/19 22:00 08/12/19 22:20 Colace - PO 200 mg HS BOWEN Administration Furosemide 20 mg 08/04/19 10:00 08/13/19 10:32 Lasix - PO 20 mg DAILY BOWEN Administration Heparin Sodium (Porcine) 5,000 unit 08/03/19 22:00 08/13/19 10:31 Heparin - SQ 5,000 unit BID BOWEN Administration Mirtazapine 7.5 mg 08/03/19 22:00 08/12/19 22:20 Remeron - PO 7.5 mg HS BOWEN Administration Multivitamins/Minerals/Vitamin C 1 tab 08/13/19 10:00 08/13/19 10:31 Tab-A-Vit - PO 1 tab DAILY BOWEN Administration Polyethylene Glycol 17 gm 08/03/19 20:30 08/13/19 10:31 Miralax (For Daily Use) - PO 17 gm DAILY PRN Administration CONSTIPATION Senna 1 tab 08/03/19 22:00 08/12/19 22:19 Senna - PO 1 tab HS BOWEN Administration ASSESSMENT/PLAN: Problem List - Problems (1) Foot ulcer Assessment/Plan: right wet press tender to touch and with multiple foot ulcers/cellulitis/ unsteageable of right heel Vascular insufficiency wound care daily with Santyl CTA with runoff shows: right leg: the common femoral artery on right side has heavy calcification with significant stenosis. 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 seen by surgery and no surgical interventions recommended. Code(s): K80.20 - CALCULUS OF GALLBLADDER W/O CHOLECYSTITIS W/O OBSTRUCTION (3) Fracture, humerus, proximal Assessment/Plan: continue with sling, supportive care Code(s): S42.209A - UNSP FRACTURE OF UPPER END OF UNSP HUMERUS, INIT FOR CLOS FX (4) Protein-calorie malnutrition, severe Assessment/Plan: dietary following on supplements patient high risk for further skin breakdown Code(s): E43 - UNSPECIFIED SEVERE PROTEIN-CALORIE MALNUTRITION (5) S/P right hip fracture Code(s): Z87.81 - PERSONAL HISTORY OF (HEALED) TRAUMATIC FRACTURE (6) 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 (7) Prophylactic measure Assessment/Plan: fen tolerating po monitor electrolytes full code Code(s): Z29.9 - ENCOUNTER FOR PROPHYLACTIC MEASURES, UNSPECIFIED Visit type - Emergency Visit Emergency Visit: Yes ED Registration Date: 08/03/19 Care time: The patient presented to the Emergency Department on the above date and was hospitalized for further evaluation of their emergent condition. - New Patient This patient is new to me today: No - Critical Care Critical Care patient: No - Discharge Referral Referred to [facility] No
--- NOTE | 2019-08-13 17:09 | PN ---
Progress Note, Physician History of Present Illness: Pt resting, without acute distress. No new events. - Current Medication List Current Medications: Active Medications Acetaminophen (Tylenol -) 500 mg PO Q6H PRN PRN Reason: Fever Or Pain 1-5 Last Admin: 08/13/19 10:32 Dose: 500 mg Amino Acids (Prosource No Carb Liquid Pkt) 30 ml PO BID [facility] Last Admin: 08/13/19 10:31 Dose: 30 ml Amoxicillin/Clavulanate Potassium (Augmentin - 500mg Tablet) 1 tab PO BID@0800, 1730 [facility] Last Admin: 08/13/19 09:02 Dose: 1 tab Ascorbic Acid (Vitamin C -) 250 mg PO BID [facility] Last Admin: 08/13/19 10:33 Dose: 250 mg Collagenase (Santyl -) 1 applic TP DAILY [facility]; Protocol Last Admin: 08/13/19 15:01 Dose: 1 applic Docusate Sodium (Colace -) [address] [facility] Last Admin: 08/12/19 22:20 Dose: 200 mg Furosemide (Lasix -) 20 mg PO DAILY [facility] Last Admin: 08/13/19 10:32 Dose: 20 mg Heparin Sodium (Porcine) (Heparin -) 5,000 unit SQ BID [facility] Last Admin: 08/13/19 10:31 Dose: 5,000 unit Mirtazapine (Remeron -) 7.5 mg PO HS [facility] Last Admin: 08/12/19 22:20 Dose: 7.5 mg Multivitamins/Minerals/Vitamin C (Tab-A-Vit -) 1 tab PO DAILY [facility] Last Admin: 08/13/19 10:31 Dose: 1 tab Polyethylene Glycol (Miralax (For Daily Use) -) 17 gm PO DAILY PRN PRN Reason: CONSTIPATION Last Admin: 08/13/19 10:31 Dose: 17 gm Senna (Senna -) 1 tab PO HS [facility] Last Admin: 08/12/19 22:19 Dose: 1 tab - Objective Vital Signs: Vital Signs Temperature 97.8 F 08/13/19 13:53 Pulse Rate 87 08/13/19 13:53 Respiratory Rate 20 08/13/19 13:53 Blood Pressure 127/68 08/13/19 13:53 O2 Sat by Pulse Oximetry (%) 96 08/12/19 21:00 Constitutional: Yes: No Distress Cardiovascular: Yes: Regular Rate and Rhythm Respiratory: Yes: Regular Gastrointestinal: Yes: Normal Bowel Sounds, Soft Extremities: Yes: Other (Rt arm sling) Wound/Incision: Yes: Other (RLE erythema improved, multiple ulcers including Rt heel) Neurological: Yes: Alert Labs: CBC, BMP 08/13/19 11:07 08/13/19 11:07 INR, PTT INR 1.00 (0.83-1.09) 08/04/19 15:00 Laboratory Tests 08/03/19 08/03/19 08/03/19 13:19 13:19 13:19 WBC 5.9 RBC 3.75 Hgb 11.8 Hct 34.5 MCV 92.1 MCH 31.5 MCHC 34.1 RDW 14.3 Plt Count 294 MPV 8.4 Absolute Neuts (auto) 4.4 Neutrophils % 75.2 Lymphocytes % 15.3 Monocytes % 8.0 Eosinophils % 0.9 Basophils % 0.6 Nucleated RBC % 0 PT with INR INR PTT (Actin FS) Sodium 140 Potassium 4.8 Chloride 104 Carbon Dioxide 32 Anion Gap 3 L BUN 20.0 H Creatinine 0.5 L Est GFR (CKD-EPI)AfAm 99.45 Est GFR (CKD-EPI)NonAf 85.81 Random Glucose 105 Calcium 8.8 Phosphorus 3.4 Magnesium 2.0 Total Bilirubin 0.4 AST 60 H ALT 57 Alkaline Phosphatase 243 H Total Protein 5.9 L Albumin 2.8 L Blood Type Antibody Screen 08/03/19 08/03/19 08/04/19 15:16 15:16 15:00 WBC 7.4 RBC 3.61 Hgb 11.4 Hct 33.2 MCV 91.9 MCH 31.7 MCHC 34.5 RDW 14.6 Plt Count 315 MPV 8.5 Absolute Neuts (auto) 5.9 Neutrophils % 79.3 Lymphocytes % 10.2 D Monocytes % 8.1 Eosinophils % 1.0 Basophils % 1.4 Nucleated RBC % 0 PT with INR 12.10 INR 1.03 PTT (Actin FS) Sodium Potassium Chloride Carbon Dioxide Anion Gap BUN Creatinine Est GFR (CKD-EPI)AfAm Est GFR (CKD-EPI)NonAf Random Glucose Calcium Phosphorus Magnesium Total Bilirubin AST ALT Alkaline Phosphatase Total Protein Albumin Blood Type Cancelled Antibody Screen Cancelled 08/04/19 08/04/19 08/06/19 15:00 15:00 06:52 WBC RBC Hgb Hct MCV MCH MCHC RDW Plt Count MPV Absolute Neuts (auto) Neutrophils % Lymphocytes % Monocytes % Eosinophils % Basophils % Nucleated RBC % PT with INR 11.80 INR 1.00 PTT (Actin FS) 33.0 Sodium 136 137 Potassium 3.4 L 4.3 Chloride 99 102 Carbon Dioxide 32 31 Anion Gap 5 L 5 L BUN 21.5 H 14.8 Creatinine 0.5 L 0.4 L Est GFR (CKD-EPI)AfAm 99.45 107.03 Est GFR (CKD-EPI)NonAf 85.81 92.34 Random Glucose 172 H 79 Calcium 8.1 L 8.8 Phosphorus Magnesium 2.0 2.1 Total Bilirubin 0.3 0.3 AST 47 H 29 ALT 48 36 Alkaline Phosphatase 225 H 209 H Total Protein 5.2 L 5.5 L Albumin 2.5 L 2.7 L Blood Type Antibody Screen 08/06/19 08/07/19 08/07/19 08:00 06:35 06:35 WBC 7.0 6.3 RBC 3.71 3.76 Hgb 11.7 11.8 Hct 34.2 34.6 MCV 92.2 92.1 MCH 31.6 31.5 MCHC 34.2 34.2 RDW 14.2 14.3 Plt Count 300 268 MPV 8.7 8.3 Absolute Neuts (auto) 5.4 4.7 Neutrophils % 77.1 75.9 Lymphocytes % 13.1 D 13.6 Monocytes % 8.2 8.8 Eosinophils % 0.7 0.9 Basophils % 0.9 0.8 Nucleated RBC % 0 0 PT with INR INR PTT (Actin FS) Sodium 137 Potassium 4.6 Chloride 100 Carbon Dioxide 32 Anion Gap 5 L BUN 15.9 Creatinine 0.4 L Est GFR (CKD-EPI)AfAm 107.03 Est GFR (CKD-EPI)NonAf 92.34 Random Glucose 80 Calcium 8.8 Phosphorus Magnesium 2.2 Total Bilirubin 0.3 AST 26 ALT 33 Alkaline Phosphatase 206 H Total Protein 5.7 L Albumin 2.6 L Blood Type Antibody Screen 08/08/19 08/08/19 08/09/19 06:30 06:30 06:25 WBC 7.6 7.6 RBC 3.79 3.48 L Hgb 11.8 11.1 Hct 35.0 32.1 L MCV 92.4 92.2 MCH 31.2 32.0 MCHC 33.7 34.7 RDW 14.5 14.3 Plt Count 245 250 MPV 8.1 8.4 Absolute Neuts (auto) 6.2 6.1 Neutrophils % 81.8 80.2 Lymphocytes % 9.3 D 10.0 Monocytes % 7.4 7.7 Eosinophils % 0.9 1.2 Basophils % 0.6 0.9 Nucleated RBC % 0 0 PT with INR INR PTT (Actin FS) Sodium 135 L Potassium 4.6 Chloride 100 Carbon Dioxide 24 Anion Gap 10 BUN 14.0 Creatinine 0.4 L Est GFR (CKD-EPI)AfAm 107.03 Est GFR (CKD-EPI)NonAf 92.34 Random Glucose 74 Calcium 8.5 Phosphorus Magnesium 2.3 Total Bilirubin 0.3 AST 39 H ALT 32 Alkaline Phosphatase 210 H Total Protein 5.8 L Albumin 2.7 L Blood Type Antibody Screen 08/09/19 08/10/19 08/10/19 06:25 06:30 06:30 WBC 5.2 RBC 3.49 L Hgb 11.1 Hct 31.8 L MCV 91.1 MCH 31.8 MCHC 34.9 RDW 14.9 Plt Count 221 MPV 8.0 Absolute Neuts (auto) 3.9 Neutrophils % 74.5 Lymphocytes % 11.7 Monocytes % 10.9 H Eosinophils % 1.8 Basophils % 1.1 Nucleated RBC % 0 PT with INR INR PTT (Actin FS) Sodium 136 135 L Potassium 4.0 4.3 Chloride 99 102 Carbon Dioxide 31 28 Anion Gap 6 L 6 L BUN 19.2 H 15.2 Creatinine 0.3 L 0.3 L Est GFR (CKD-EPI)AfAm 117.65 117.65 Est GFR (CKD-EPI)NonAf 101.51 101.51 Random Glucose 68 L 75 Calcium 8.4 L 8.2 L Phosphorus Magnesium 2.4 2.1 Total Bilirubin 0.3 0.3 AST 26 25 ALT 32 28 Alkaline Phosphatase 196 H 181 H Total Protein 5.6 L 5.3 L Albumin 2.6 L 2.4 L Blood Type Antibody Screen 08/11/19 08/11/19 08/12/19 06:40 06:40 06:30 WBC 5.9 5.9 RBC 3.42 L 3.56 L Hgb 10.8 11.4 Hct 30.7 L 32.5 MCV 89.9 91.3 MCH 31.7 31.9 MCHC 35.3 34.9 RDW 14.4 14.5 Plt Count 224 245 MPV 7.7 8.0 Absolute Neuts (auto) 4.7 4.6 Neutrophils % 79.5 78.5 Lymphocytes % 9.8 11.3 Monocytes % 8.1 8.5 Eosinophils % 1.9 1.0 Basophils % 0.7 0.7 Nucleated RBC % 0 0 PT with INR INR PTT (Actin FS) Sodium 134 L Potassium 3.9 Chloride 100 Carbon Dioxide 28 Anion Gap 6 L BUN 15.0 Creatinine 0.3 L Est GFR (CKD-EPI)AfAm 117.65 Est GFR (CKD-EPI)NonAf 101.51 Random Glucose 92 Calcium 8.3 L Phosphorus Magnesium 2.2 Total Bilirubin 0.4 AST 26 ALT 29 Alkaline Phosphatase 188 H Total Protein 5.5 L Albumin 2.5 L Blood Type Antibody Screen 08/12/19 08/13/19 08/13/19 06:30 11:07 11:07 WBC 7.7 RBC 3.43 L Hgb 10.9 Hct 31.5 L MCV 91.9 MCH 31.7 MCHC 34.5 RDW 14.6 Plt Count 234 MPV 8.2 Absolute Neuts (auto) 6.1 Neutrophils % 79.2 Lymphocytes % 9.2 Monocytes % 10.4 H Eosinophils % 0.5 Basophils % 0.7 Nucleated RBC % 0 PT with INR INR PTT (Actin FS) Sodium 133 L 131 L Potassium 4.3 4.1 Chloride 98 96 L Carbon Dioxide 31 28 Anion Gap 5 L 7 L BUN 15.9 15.5 Creatinine 0.3 L 0.3 L Est GFR (CKD-EPI)AfAm 117.65 117.65 Est GFR (CKD-EPI)NonAf 101.51 101.51 Random Glucose 78 98 Calcium 8.8 8.6 Phosphorus Magnesium 2.3 2.0 Total Bilirubin 0.2 0.4 AST 24 23 ALT 30 28 Alkaline Phosphatase 192 H 182 H Total Protein 5.7 L 5.6 L Albumin 2.7 L 2.6 L Blood Type Antibody Screen Problem List - Problems (1) Foot ulcer Code(s): L97.509 - NON-PRESSURE CHRONIC ULCER OTH PRT UNSP FOOT W UNSP SEVERITY (2) Fracture, humerus, proximal Code(s): S42.209A - UNSP FRACTURE OF UPPER END OF UNSP HUMERUS, INIT FOR CLOS FX (3) Protein-calorie malnutrition, severe Code(s): E43 - UNSPECIFIED SEVERE PROTEIN-CALORIE MALNUTRITION (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
[2019-08-13] MEDS: SENNOSIDES 8.6MG TABLET (FP) PO SCH (21:09)
[2019-08-13] MEDS: DOCUSATE SODIUM 100 MG CAPSULE (FP) PO SCH (21:10)
[2019-08-13] MEDS: MIRTAZAPINE 15 MG TABLET (FP) PO SCH (21:10)
[2019-08-14] MEDS: ASCORBIC ACID 250 MG TABLET (FP) PO SCH ×2 (09:15→22:04)
[2019-08-14] MEDS: AMOX TR/POT CLAV 500MG/125MG TABLETS (FP) PO SCH ×2 (09:15→16:52)
[2019-08-14] MEDS: FUROSEMIDE 20 MG TABLET (FP) PO SCH (09:15)
[2019-08-14] MEDS: HEPARIN NA (PORCINE) 5,000 UNITS/ML 1ML VIAL SQ SCH ×2 (09:15→22:05)
[2019-08-14] MEDS: MULTIVITAMINS (DAILY MVI) TABLET (FP) PO SCH (09:15)
[2019-08-14] MEDS: AMINO ACIDS/PROTEIN HYDROLYS 30 ML LIQUID.PKT PO SCH ×2 (09:16→22:05)
[2019-08-14] MEDS: COLLAGENASE CLOSTRIDIUM HIST. 30 GRAMS TUBE TP SCH (09:16)
--- NOTE | 2019-08-14 10:39 | PN ---
Progress Note, Physician History of Present Illness: stable no new issues - Current Medication List Current Medications: Active Medications Acetaminophen (Tylenol -) 500 mg PO Q6H PRN PRN Reason: Fever Or Pain 1-5 Last Admin: 08/13/19 21:09 Dose: 500 mg Amino Acids (Prosource No Carb Liquid Pkt) 30 ml PO BID [facility] Last Admin: 08/14/19 09:16 Dose: 30 ml Amoxicillin/Clavulanate Potassium (Augmentin - 500mg Tablet) 1 tab PO BID@0800, 1730 [facility] Last Admin: 08/14/19 09:15 Dose: 1 tab Ascorbic Acid (Vitamin C -) 250 mg PO BID [facility] Last Admin: 08/14/19 09:15 Dose: 250 mg Collagenase (Santyl -) 1 applic TP DAILY [facility]; Protocol Last Admin: 08/14/19 09:16 Dose: 1 applic Docusate Sodium (Colace -) 200 mg PO HS [facility] Last Admin: 08/13/19 21:10 Dose: 200 mg Furosemide (Lasix -) 20 mg PO DAILY [facility] Last Admin: 08/14/19 09:15 Dose: 20 mg Heparin Sodium (Porcine) (Heparin -) 5,000 unit SQ BID [facility] Last Admin: 08/14/19 09:15 Dose: 5,000 unit Mirtazapine (Remeron -) 7.5 mg PO HS [facility] Last Admin: 08/13/19 21:10 Dose: 7.5 mg Multivitamins/Minerals/Vitamin C (Tab-A-Vit -) 1 tab PO DAILY [facility] Last Admin: 08/14/19 09:15 Dose: 1 tab Polyethylene Glycol (Miralax (For Daily Use) -) 17 gm PO DAILY PRN PRN Reason: CONSTIPATION Last Admin: 08/13/19 10:31 Dose: 17 gm Senna (Senna -) 1 tab PO HS [facility] Last Admin: 08/13/19 21:09 Dose: 1 tab - Objective Vital Signs: Vital Signs Temperature 97.4 F L 08/14/19 08:41 Pulse Rate 76 08/14/19 08:41 Respiratory Rate 18 08/14/19 08:41 Blood Pressure 131/75 08/14/19 08:41 O2 Sat by Pulse Oximetry (%) 97 08/13/19 21:00 Constitutional: Yes: No Distress, Calm, Other (failure to thrive) Cardiovascular: Yes: S1, S2 Respiratory: Yes: Regular, CTA Bilaterally Gastrointestinal: Yes: Normal Bowel Sounds, Soft Musculoskeletal: Yes: WNL Extremities: Yes: Other Neurological: Yes: Alert, Other Labs: CBC, BMP 08/13/19 11:07 08/13/19 11:07 INR, PTT INR 1.00 (0.83-1.09) 08/04/19 15:00 Assessment/Plan Problem List - Problems (1) Foot ulcer Code(s): L97.509 - NON-PRESSURE CHRONIC ULCER OTH PRT UNSP FOOT W UNSP SEVERITY (2) Fracture, humerus, proximal Code(s): S42.209A - UNSP FRACTURE OF UPPER END OF UNSP HUMERUS, INIT FOR CLOS FX (3) Protein-calorie malnutrition, severe Code(s): E43 - UNSPECIFIED SEVERE PROTEIN-CALORIE MALNUTRITION (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
--- NOTE | 2019-08-14 10:41 | DS ---
Physical Exam: SUBJECTIVE: Patient seen and examined at the bedside. In no acute distress. having mild discomfort of her right foot. OBJECTIVE: Patient is an 89 year-old female, with a past medical history of situs inversus, severe protein calorie malnutrition, and right hip fracture s/p repair (2019, SUNITA Hanna). 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 She is s/p CTA with runoff. Vital Signs Period Temp Pulse Resp BP Sys/Mena Pulse Ox Last 24 Hr 97.4 F-98.2 F 73-87 18-20 122-131/68-79 97 PHYSICAL EXAM GENERAL: The patient is awake, alert, cachectic. HEAD: Normal with no signs of trauma. EYES: PERRL, extraocular movements intact, sclera anicteric, conjunctiva clear. No ptosis. ENT: Ears normal, nares patent, oropharynx clear without exudates, dry mucous membranes. NECK: Trachea midline, full range of motion, supple. LUNGS: Breath sounds equal, clear to auscultation bilaterally HEART: Regular rate and rhythm ABDOMEN: Soft, nontender, nondistended, normoactive bowel sounds EXTREMITIES: right arm rests loosely in a sling; large, obvious deformity of humeral head with ecchymosis, not tender. right foot with multiple ulcers. Right foot: multiple, ulcers to right foot including an unsteageable to right heel. NEUROLOGICAL: Normal speech, mostly bedbound PSYCH: Normal mood, normal affect. LABS Laboratory Results - last 24 hr 08/13/19 08/13/19 11:07 11:07 WBC 7.7 RBC 3.43 L Hgb 10.9 Hct 31.5 L MCV 91.9 MCH 31.7 MCHC 34.5 RDW 14.6 Plt Count 234 MPV 8.2 Absolute Neuts (auto) 6.1 Neutrophils % 79.2 Lymphocytes % 9.2 Monocytes % 10.4 H Eosinophils % 0.5 Basophils % 0.7 Nucleated RBC % 0 Sodium 131 L Potassium 4.1 Chloride 96 L Carbon Dioxide 28 Anion Gap 7 L BUN 15.5 Creatinine 0.3 L Est GFR (CKD-EPI)AfAm 117.65 Est GFR (CKD-EPI)NonAf 101.51 Random Glucose 98 Calcium 8.6 Magnesium 2.0 Total Bilirubin 0.4 AST 23 ALT 28 Alkaline Phosphatase 182 H Total Protein 5.6 L Albumin 2.6 L HOSPITAL COURSE: Date of Admission:08/03/19 Date of Discharge: 08/14/19 Minutes to complete discharge: 45 Discharge Summary Problems reviewed: Yes Reason For Visit: OSTEOMYELITIS Current Active Problems Calculus of gallbladder without cholangitis or cholecystitis (Acute) Closed fracture of right humerus (Acute) Decubitus ulcer of right foot, unstageable (Acute) Foot ulcer (Acute) Fracture, humerus, proximal (Acute) Gallstones (Acute) Osteomyelitis (Acute) Prophylactic measure (Acute) Protein-calorie malnutrition, severe (Acute) S/P right hip fracture (Acute) Situs inversus (Acute) Condition: Stable - Instructions Diet, Activity, Other Instructions: Mrs Amaya/Facility staff: Mrs Amaya was admitted for right foot ulcers. During her stay she was evaluated by vascular, infectious disease and hospitalist service. She was also evaluated by a surgical physician for gall stones. Here are our recommendations for discharge: Right Foot Ulcers: No surgical interventions recommended at this time. Please keep heels off the bed Offload heels. Continue Santyl to all wounds (right foot) ONCE per day and wrap with dry sterile dressing. Patient has completed antibiotics. Gall stones: No surgical interventions recommended Severe Cachexia: on Ensure twice per day Continue oral hydration multivitamin, Calcium supplements (see discharge medication list) Medications: Hold lasix and repeat electrolytes prior to resuming. Thank you for allowing us to care for you Referrals: ON STAFF,NOT [Primary Care Provider] - Disposition: [facility] - Home Medications Comprehensive Discharge Medication List: Ambulatory Orders Acetaminophen 650 mg PO Q8H 08/03/19 Amino Acids/Protein Hydrolys [Pro-Stat Max Liquid] 30 ml PO BID 08/03/19 Docusate Sodium [Colace] 200 mg PO HS 08/03/19 Furosemide [Lasix -] 20 mg PO DAILY 08/03/19 Mirtazapine 7.5 mg PO [facility] 08/03/19 Multivitamin [Multiple Vitamins] 1 each PO DAILY 08/03/19 Polyethylene Glycol 3350 17 gm PO DAILY PRN 08/03/19 Sennosides [Senna] 17.2 mg PO HS 08/03/19 Ascorbic Acid [Vitamin C -] 250 mg PO BID #0 tablet 08/14/19 Collagenase Clostridium Hist. 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 deep femoral artery is patent PICC placed, but patient will not require long-term antibiotics, therefore will remove picc prior to d/c patient on augmentin per ID for a total of 7 days, ceftriaxone discontinued Code(s): L97.509 - NON-PRESSURE CHRONIC ULCER OTH PRT UNSP FOOT W UNSP SEVERITY (2) Gallstones Assessment/Plan: gallstones found on imaging of CTA. seen by surgery and no surgical interventions recommended. 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 Code(s): E87.1 - HYPO-OSMOLALITY AND HYPONATREMIA (8) Prophylactic measure Assessment/Plan: fen tolerating po monitor electrolytes full code Code(s): Z29.9 - ENCOUNTER FOR PROPHYLACTIC MEASURES, UNSPECIFIED This patient is new to me today: No Emergency Visit: Yes ED Registration Date: 08/03/19 Care time: The patient presented to the Emergency Department on the above date and was hospitalized for further evaluation of their emergent condition. Critical Care patient: No - Discharge Referral Referred to [facility] Med [facility].C.: No
[2019-08-14] MEDS ORDERED: PT OWN MED DRAWER 7, Y5N ONE (21:54)
[2019-08-14] MEDS: MIRTAZAPINE 15 MG TABLET (FP) PO SCH (22:04)
[2019-08-14] MEDS: DOCUSATE SODIUM 100 MG CAPSULE (FP) PO SCH (22:04)
[2019-08-14] MEDS: SENNOSIDES 8.6MG TABLET (FP) PO SCH (22:04)
--- NOTE | 2019-08-15 09:17 | PN ---
Progress Note, Physician History of Present Illness: 89 year-old female, with a PMH significant for situs inversus, severe protein calorie malnutrition, and right hip fracture s/p repair (2019, SUNITA Hanna). 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 Patient is a poor historian, there is no one present at time of this admission to give parallel history. Information is taken from the medical record. - Current Medication List Current Medications: Active Medications Acetaminophen (Tylenol -) 500 mg PO Q6H PRN PRN Reason: Fever Or Pain 1-5 Last Admin: 08/13/19 21:09 Dose: 500 mg Amino Acids (Prosource No Carb Liquid Pkt) 30 ml PO BID [facility] Last Admin: 08/14/19 22:05 Dose: 30 ml Amoxicillin/Clavulanate Potassium (Augmentin - 500mg Tablet) 1 tab PO BID@0800, 1730 [facility] Last Admin: 08/14/19 16:52 Dose: 1 tab Ascorbic Acid (Vitamin C -) 250 mg PO BID [facility] Last Admin: 08/14/19 22:04 Dose: 250 mg Collagenase (Santyl -) 1 applic TP DAILY [facility]; Protocol Last Admin: 08/14/19 09:16 Dose: 1 applic Docusate Sodium (Colace -) 200 mg PO HS [facility] Last Admin: 08/14/19 22:04 Dose: 200 mg Heparin Sodium (Porcine) (Heparin -) 5,000 unit SQ BID [facility] Last Admin: 08/14/19 22:05 Dose: 5,000 unit Mirtazapine (Remeron -) 7.5 mg PO HS [facility] Last Admin: 08/14/19 22:04 Dose: 7.5 mg Multivitamins/Minerals/Vitamin C (Tab-A-Vit -) 1 tab PO DAILY [facility] Last Admin: 08/14/19 09:15 Dose: 1 tab Polyethylene Glycol (Miralax (For Daily Use) -) 17 gm PO DAILY PRN PRN Reason: CONSTIPATION Last Admin: 08/13/19 10:31 Dose: 17 gm Senna (Senna -) 1 tab PO HS [facility] Last Admin: 08/14/19 22:04 Dose: 1 tab - Objective Vital Signs: Vital Signs Temperature 97.4 F L 08/15/19 06:00 Pulse Rate 77 08/15/19 06:00 Respiratory Rate 20 08/15/19 06:00 Blood Pressure 120/74 08/15/19 06:00 O2 Sat by Pulse Oximetry (%) 99 08/14/19 21:00 Labs: CBC, BMP 08/13/19 11:07 08/13/19 11:07 INR, PTT INR 1.00 (0.83-1.09) 08/04/19 15:00 Problem List - Problems (1) Prophylactic measure Code(s): Z29.9 - ENCOUNTER FOR PROPHYLACTIC MEASURES, UNSPECIFIED (2) 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 (3) Protein-calorie malnutrition, severe Code(s): E43 - UNSPECIFIED SEVERE PROTEIN-CALORIE MALNUTRITION (4) Foot ulcer Code(s): L97.509 - NON-PRESSURE CHRONIC ULCER OTH PRT UNSP FOOT W UNSP SEVERITY (5) S/P right hip fracture Code(s): Z87.81 - PERSONAL HISTORY OF (HEALED) TRAUMATIC FRACTURE (6) Osteomyelitis Code(s): M86.9 - OSTEOMYELITIS, UNSPECIFIED Qualifiers: Osteomyelitis type: unspecified type Osteomyelitis location: foot Laterality: right Qualified Code(s): M86.9 - Osteomyelitis, unspecified (7) Fracture, humerus, proximal Code(s): S42.209A - UNSP FRACTURE OF UPPER END OF UNSP HUMERUS, INIT FOR CLOS FX
[2019-08-15] MEDS: AMOX TR/POT CLAV 500MG/125MG TABLETS (FP) PO SCH (09:25)
[2019-08-15] MEDS: ASCORBIC ACID 250 MG TABLET (FP) PO SCH (09:26)
[2019-08-15] MEDS ORDERED: BISACODYL 10 MG SUPP.RECT PR PRN (09:47)
[2019-08-15] MEDS: HEPARIN NA (PORCINE) 5,000 UNITS/ML 1ML VIAL SQ SCH (09:53)
[2019-08-15] MEDS: MULTIVITAMINS (DAILY MVI) TABLET (FP) PO SCH (09:53)
[2019-08-15] MEDS: AMINO ACIDS/PROTEIN HYDROLYS 30 ML LIQUID.PKT PO SCH (09:53)
[2019-08-15] MEDS: COLLAGENASE CLOSTRIDIUM HIST. 30 GRAMS TUBE TP SCH (09:55)
[2019-08-15] MEDS ORDERED: SODIUM PHOSPHATE/NA BIPHOS 133 ML ENEMA PR ONE (10:15)
[2019-08-15 10:49] VITALS: BP 142/72; PULSE 74; TEMP 97.7
[2019-08-15] MEDS: ACETAMINOPHEN 500 MG TABLET (FP) PO PRN (11:03)
--- NOTE | 2019-08-15 12:08 | PN ---
Progress Note, Physician History of Present Illness: no new issues - Current Medication List Current Medications: Active Medications Acetaminophen (Tylenol -) 500 mg PO Q6H PRN PRN Reason: Fever Or Pain 1-5 Last Admin: 08/15/19 11:03 Dose: 500 mg Amino Acids (Prosource No Carb Liquid Pkt) 30 ml PO BID [facility] Last Admin: 08/15/19 09:53 Dose: 30 ml Amoxicillin/Clavulanate Potassium (Augmentin - 500mg Tablet) 1 tab PO BID@0800, 1730 [facility] Last Admin: 08/15/19 09:25 Dose: 1 tab Ascorbic Acid (Vitamin C -) 250 mg PO BID [facility] Last Admin: 08/15/19 09:26 Dose: 250 mg Bisacodyl (Dulcolax Suppository -) 10 mg RI PRN PRN PRN Reason: CONSTIPATION Collagenase (Santyl -) 1 applic TP DAILY [facility]; Protocol Last Admin: 08/15/19 09:55 Dose: 1 applic Docusate Sodium (Colace -) 200 mg PO [facility] Last Admin: 08/14/19 22:04 Dose: 200 mg Heparin Sodium (Porcine) (Heparin -) 5,000 unit SQ BID [facility] Last Admin: 08/15/19 09:53 Dose: 5,000 unit Mirtazapine (Remeron -) 7.5 mg PO [facility] Last Admin: 08/14/19 22:04 Dose: 7.5 mg Multivitamins/Minerals/Vitamin C (Tab-A-Vit -) 1 tab PO DAILY [facility] Last Admin: 08/15/19 09:53 Dose: 1 tab Polyethylene Glycol (Miralax (For Daily Use) -) 17 gm PO DAILY PRN PRN Reason: CONSTIPATION Last Admin: 08/13/19 10:31 Dose: 17 gm Senna (Senna -) 1 tab PO [facility] Last Admin: 08/14/19 22:04 Dose: 1 tab - Objective Vital Signs: Vital Signs Temperature 97.7 F 08/15/19 08:30 Pulse Rate 74 08/15/19 08:30 Respiratory Rate 16 08/15/19 08:30 Blood Pressure 142/72 08/15/19 08:30 O2 Sat by Pulse Oximetry (%) 95 08/15/19 09:00 Constitutional: Yes: No Distress, Calm Cardiovascular: Yes: S1, S2 Respiratory: Yes: Regular, CTA Bilaterally Gastrointestinal: Yes: Normal Bowel Sounds, Soft Musculoskeletal: Yes: WNL Extremities: Yes: Other Neurological: Yes: Alert Psychiatric: Yes: Alert Labs: CBC, BMP 08/13/19 11:07 08/13/19 11:07 INR, PTT INR 1.00 (0.83-1.09) 08/04/19 15:00 Assessment/Plan Problem List - Problems (1) Foot ulcer Code(s): L97.509 - NON-PRESSURE CHRONIC ULCER OTH PRT UNSP FOOT W UNSP SEVERITY (2) Fracture, humerus, proximal Code(s): S42.209A - UNSP FRACTURE OF UPPER END OF UNSP HUMERUS, INIT FOR CLOS FX (3) Protein-calorie malnutrition, severe Code(s): E43 - UNSPECIFIED SEVERE PROTEIN-CALORIE MALNUTRITION (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
--- NOTE | 2019-08-15 16:13 | PN ---
Progress Note (short form) - Note Progress Note: Seen and examined. Pending placement to SNF for wound care Constitutional: Yes: No Distress, Calm, Cachectic Eyes: Yes: WNL, Conjunctiva Clear HENT: Yes: WNL, Atraumatic, Normocephalic Neck: Yes: WNL, Supple, Trachea Midline Cardiovascular: Yes: WNL, Regular Rate and Rhythm Respiratory: Yes: WNL, Regular, CTA Bilaterally Gastrointestinal: Yes: WNL, Normal Bowel Sounds ...Rectal Exam: Yes: Deferred Genitourinary: Yes: Incontinence Musculoskeletal: Yes: WNL Extremities: Yes: Deformity (arm rests loosely in a sling; large, obvious deformity of humeral head with ecchymosis, not tender), Other (Gauze wrap c/d/i ; patient refused to allow dressing to be removed.) Edema: No Peripheral Pulses WNL: Yes Peripheral Pulses: Left Radial: 2+, Right Radial: 2+, Left Doralis Pedis: 2+, Right Dorsalis Pedis: 2+, Left Femoral: 2+, Right Femoral: 2+ Integumentary: Yes: Venous Stasis Changes, Other (dresing cdi) Wound/Incision: Yes: Dressing Dry and Intact Neurological: Yes: WNL, Alert, Oriented ...Motor Strength: LUE, LLE, RUE, RLE (generalized weakness. 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 (3) Protein-calorie malnutrition, severe Code(s): E43 - UNSPECIFIED SEVERE PROTEIN-CALORIE MALNUTRITION (4) Foot ulcer Code(s): L97.509 - NON-PRESSURE CHRONIC ULCER OTH PRT UNSP FOOT W UNSP SEVERITY (5) S/P right hip fracture Code(s): Z87.81 - PERSONAL HISTORY OF (HEALED) TRAUMATIC FRACTURE (6) Osteomyelitis Code(s): M86.9 - OSTEOMYELITIS, UNSPECIFIED Qualifiers: Osteomyelitis type: unspecified type Osteomyelitis location: foot Laterality: right Qualified Code(s): M86.9 - Osteomyelitis, unspecified (7) Fracture, humerus, proximal Code(s): S42.209A - UNSP FRACTURE OF UPPER END OF UNSP HUMERUS, INIT FOR CLOS FX Visit type - Emergency Visit Emergency Visit: Yes ED Registration Date: 08/03/19 Care time: The patient presented to the Emergency Department on the above date and was hospitalized for further evaluation of their emergent condition. - New Patient This patient is new to me today: No - Critical Care Critical Care patient: No - Discharge Referral Referred to [facility] No
== END 2019-08-15 12:52 | DRG 602 ==
LOC: JER 11:02 → JERBED 17:16 → J7W 19:06
PROVIDERS: ADMIT Internal Medicine; ATTEND Nurse Practitioner Acute Care
PROC: 02HV33Z Insertion of Infusion Device into Superior Vena Cava, Percutaneous Approach (ICD-10-PCS; 2019-08-07)
PROC: B518ZZA Fluoroscopy of Superior Vena Cava, Guidance (ICD-10-PCS; 2019-08-07)
PROC: B41DYZZ Fluoroscopy of Aorta and Bilateral Lower Extremity Arteries using Other Contrast (ICD-10-PCS; principal; 2019-08-09)
DX: L03.115 Cellulitis of right lower limb (principal); E43 Unspecified severe protein-calorie malnutrition; S42.201A Unspecified fracture of upper end of right humerus, initial encounter for closed fracture; Q89.3 Situs inversus; R64 Cachexia; Z68.1 Body mass index [BMI] 19.9 or less, adult; L97.419 Non-pressure chronic ulcer of right heel and midfoot with unspecified severity; M86.9 Osteomyelitis, unspecified; E87.1 Hypo-osmolality and hyponatremia; K80.20 Calculus of gallbladder without cholecystitis without obstruction; R62.7 Adult failure to thrive; X58.XXXA Exposure to other specified factors, initial encounter; Y93.9 Activity, unspecified; Y92.9 Unspecified place or not applicable; Y99.9 Unspecified external cause status
CPT/HCPCS: 36415; 36569; 73060-TC-RT-FY; 73070-TC-RT-FY; 73610-TC-RT-FY; 73630-TC-RT-FY; 75635-TC; 76705-TC; 77001-TC-FY; 80048; 80053; 83735; 84100; 85025; 85610; 85730; 87040; 93005; 93010; 97116-GP; 97161-GP; 99285-25; C1751; G0463-25; J0131; J1644; Q9967